=== PATIENT | female | born 1995 | race Caucasian/White ===

== ENCOUNTER 2020-08-23 00:52 | Emergency (ER) | payer OTHER, SELFPAY ==
[2020-08-23 00:55] VITALS: BP 102/57; PULSE 100; RESP 16; TEMP 36.9; O2SAT 98; BMI 20.7
[2020-08-23 01:19] LABS: Glucose Urine UA NEG (NEG); Leukocyte Esterase Urine NEG (NEG); Nitrite Urine NEG (NEG); PH 6.5 (5.0-8.0); Specific Gravity - Urine 1.025 (1.005-1.025); Urine Blood TRACE (NEG); Urine Ketones 5 MG/DL (NEG); Urine Protein NEG (NEG-TRACE)
[2020-08-23 01:38] LABS: UPreg QC Valid YES; Urine Pregnancy NEGATIVE (NEGATIVE)
[2020-08-23 01:39] LABS: Appearance Urine CLEAR; Bacteria Urine TRACE /LPF; Color Urine YELLOW; RBC Urine 0-2 /HPF (0); Renal Epithelial Cells Urine 2+ /LPF; Squamous Epithelial Cell Urine 2+ /LPF; WBC Urine 0 /HPF (0-4)
[2020-08-23 01:40] LABS: Uric Acid Crystals Urine TRACE /LPF
--- NOTE | 2020-08-23 01:46 | ED.ABDPAIN ---
HPI - Abdominal Pain General Chief Complaint: Abdominal Pain Stated Complaint: Nausea Time Seen by Provider: 08/23/20 01:44 Source: patient Mode of arrival: ambulatory Limitations: no limitations History of Present Illness HPI narrative: This is a 24-year-old female who presents with onset of lower abdominal discomfort that radiates around into her back since 4:00 a.m. this morning and then began developing nausea and vomiting as well as chills at approximately noon as well as experiencing a few episodes of diarrhea. her LMP was last month and she states she gets irregular menses. Related Data Previous Rx's Medication Instructions Recorded hydroxyzine HCl 25 mg PO TID PRN 2 Days #6 tab 08/23/20 ondansetron HCl [Zofran] 4 mg PO Q8H PRN 2 Days #6 tab 08/23/20 Allergies Allergy/AdvReac Type Severity Reaction Status Date / Time SEASONAL ALLERGIES Allergy Intermediate SNEEZING Uncoded 06/23/20 16:34 Review of Systems Review of Systems Pertinent positives and negatives as stated in HPI 10 point review of systems is otherwise negative. Physical Exam Vital Signs: Vital Signs: Last Vital Signs Temp 98.3 F 08/23/20 03:47 Pulse 103 H 08/23/20 03:47 Resp 16 08/23/20 04:13 BP 104/54 L 08/23/20 04:13 Pulse Ox 99 08/23/20 04:13 Body Mass Index 20.7 VITAL SIGNS: Reviewed. GENERAL: Well developed, well nourished, in no acute distress. HEAD: Normocephalic/atraumatic, EYES: PERRLA, EOMI intact without pain, no nystagmus/pallor/icterus noted EARS: Ext canals without abnormality, TMs non-bulging and non-erythematous NOSE: Nares patent bilateral OROPHARYNX: no oral lesions noted, posterior pharynx clear and non-erythematous without noted tonsillar enlargement/erythema/exudates NECK: Supple, no adenopathy LUNGS: Normal breath sounds. No adventitious sounds or accessory muscle use. SpO2<98> CARDIOVASCULAR: Regular rate and rhythm without noted murmurs, no JVD or lower extremity edema. ABDOMEN: Soft, Tenderness on palpation without rebound, non-distended with bowel sounds. No rigidity. No guarding. No palpable masses or hernias noted MUSCULOSKELETAL: No tenderness, deformities, or effusions noted on gross inspection. EXTREMITIES: No cyanosis, clubbing or edema. SKIN: Inspection of the skin reveals no rashes, ulcerations, jaundice, pallor, or petechiae. NEUROLOGIC: Alert and oriented x 4. Strength and sensation to light touch were grossly intact x 4. Course Course Course Narrative: This is a 24-year-old female with history and clinical presentation suggestive of possible ectopic, appendicitis, UTI, renal colic, but doubt diverticulitis, or ovarian torsion. Reevaluation(s) Reevaluation #1: Suspect intra-abdominal infection and blood cultures, lactic acid, sepsis fluids, and antibiotics were ordered. Time: 03:35 Reevaluation #2: Review of all investigations negative for any acute findings and the noted mild leukocytosis is likely secondary to patient's nausea and vomiting. Review of CT scan was significant for peripherally enhancing hypodensity in the left adnexa, suggestive of a corpus luteal cyst and with a noted small amount of pelvic free fluid may be physiologic or secondary to cyst rupture. I suspect likely cyst rupture given patient's discomfort and symptoms. On re-evaluation the pain medication that patient received has resulted in almost complete resolution of her discomfort and she is able to tolerate p.o.. Results and findings were discussed with her bedside and she was discharged home in stable condition. Time: 04:54 MDM - Abdominal Pain Lab Data Result diagrams: 08/23/20 01:50 08/23/20 01:50 Labs: Lab Results 08/23/20 08/23/20 08/23/20 Range/Units 01:09 01:50 01:50 WBC 12.2 H (4.8-10.8) X10*3/uL RBC 4.41 (4.20-5.50) X10*6/uL Hgb 13.5 (12.0-16.0) g/dl Hct 40.8 (37-47) % MCV 92.5 (80-98) fL MCH 30.6 (27.0-33.0) pg MCHC 33.1 (31.0-35.0) g/dl RDW 11.9 (11.0-16.0) % Plt Count 258 (160-400) X10*3/uL MPV 11.1 (9.4-12.3) fL Immature Gran % (Auto) 0.2 (0.0-0.4) % Neut % (Auto) 80.7 H (45-73) % Lymph % (Auto) 10.9 L (20-40) % [place] % (Auto) 7.3 (2-11) % Eos % (Auto) 0.7 (0-4) % Baso % (Auto) 0.2 (0-2) % Lymph # (Auto) 1.3 (1.2-4.9) X10*3/uL [place] # (Auto) 0.9 (0.1-1.2) X10*3/uL Eos # (Auto) 0.1 (0.0-0.4) X10*3/uL Baso # (Auto) 0.0 (0.0-0.2) X10*3/uL Abs Immat Gran (auto) 0.02 (0.00-0.03) X10*3/uL Absolute Neuts (auto) 9.9 H (2.0-8.3) X10*3/uL Absolute Nucleated RBC 0.000 (0.0-0.012) X10*3/uL Nucleated RBC % (auto) 0.0 (0.0-0.2) /100WBC Hold Blue Top SEE NOTE Sodium (135-145) mmol/L Potassium (3.3-5.1) mmol/l Chloride (96-108) mmol/L Carbon Dioxide (22-29) mmol/L Anion Gap (12-20) BUN (9-16) mg/dL Creatinine (0.5-1.4) mg/dL Estim Creat Clear Calc Estimated GFR Random Glucose (60-115) mg/dL Lactic Acid (0.5-2.0) mmol/L Calcium (8.4-10.2) mg/dL Total Bilirubin (0.0-1.0) mg/dL AST (5-31) U/L ALT (0-31) U/L Alkaline Phosphatase (39-117) U/L Total Protein (6.5-8.0) g/dL Albumin (3.5-5.0) g/dL Lipase (8-78) U/L Urine Color YELLOW Urine Appearance CLEAR Urine pH 6.5 (5.0-8.0) Ur Specific [place] 1.025 (1.005-1.025) Urine Protein NEG (NEG-TRACE) MG/DL Urine Glucose (UA) NEG (NEG) MG/DL Urine Ketones 5 (NEG) MG/DL Urine Blood TRACE (NEG) Urine Nitrite NEG (NEG) Ur Leukocyte Esterase NEG (NEG) Urine RBC 0-2 (0) /HPF Urine WBC 0 (0-4) /HPF Ur Squamous Epith Cells 2+ /LPF Ur Renal Epithelial Cell 2+ /LPF Uric Acid Crystals TRACE /LPF Urine Bacteria TRACE /LPF Urine Test NEGATIVE (NEGATIVE) 08/23/20 08/23/20 Range/Units 01:50 03:47 WBC (4.8-10.8) X10*3/uL RBC (4.20-5.50) X10*6/uL Hgb (12.0-16.0) g/dl Hct (37-47) % MCV (80-98) fL MCH (27.0-33.0) pg MCHC (31.0-35.0) g/dl RDW (11.0-16.0) % Plt Count (160-400) X10*3/uL MPV (9.4-12.3) fL Immature Gran % (Auto) (0.0-0.4) % Neut % (Auto) (45-73) % Lymph % (Auto) (20-40) % [place] % (Auto) (2-11) % Eos % (Auto) (0-4) % Baso % (Auto) (0-2) % Lymph # (Auto) (1.2-4.9) X10*3/uL [place] # (Auto) (0.1-1.2) X10*3/uL Eos # (Auto) (0.0-0.4) X10*3/uL Baso # (Auto) (0.0-0.2) X10*3/uL Abs Immat Gran (auto) (0.00-0.03) X10*3/uL Absolute Neuts (auto) (2.0-8.3) X10*3/uL Absolute Nucleated RBC (0.0-0.012) X10*3/uL Nucleated RBC % (auto) (0.0-0.2) /100WBC Hold Blue Top Sodium 138 (135-145) mmol/L Potassium 4.2 (3.3-5.1) mmol/l Chloride 106 (96-108) mmol/L Carbon Dioxide 25 (22-29) mmol/L Anion Gap 11 L (12-20) BUN 12 (9-16) mg/dL Creatinine 0.73 (0.5-1.4) mg/dL Estim Creat Clear Calc 90.4 Estimated GFR > 60 Random Glucose 109 (60-115) mg/dL Lactic Acid 1.1 (0.5-2.0) mmol/L Calcium 9.5 (8.4-10.2) mg/dL Total Bilirubin 0.5 (0.0-1.0) mg/dL AST 13 (5-31) U/L ALT 9 (0-31) U/L Alkaline Phosphatase 49 (39-117) U/L Total Protein 7.4 (6.5-8.0) g/dL Albumin 4.9 (3.5-5.0) g/dL Lipase 28 (8-78) U/L Urine Color Urine Appearance Urine pH (5.0-8.0) Ur Specific [place] (1.005-1.025) Urine Protein (NEG-TRACE) MG/DL Urine Glucose (UA) (NEG) MG/DL Urine Ketones (NEG) MG/DL Urine Blood (NEG) Urine Nitrite (NEG) Ur Leukocyte Esterase (NEG) Urine RBC (0) /HPF Urine WBC (0-4) /HPF Ur Squamous Epith Cells /LPF Ur Renal Epithelial Cell /LPF Uric Acid Crystals /LPF Urine Bacteria /LPF Urine Test (NEGATIVE) Discharge Plan Discharge Clinical Impression: Ruptured ovarian cyst, Free fluid in pelvis Patient Disposition: Home, Self-Care Instructions: Ruptured Ovarian Cyst (ED) Additional Instructions: 1. After reviewing the CT scan it appears you may have had a ruptured ovarian cyst on the left. This fluid that is released afterwards can often irritate and caused the pain that you were experiencing. You will need to follow-up with your primary care provider by calling the office this morning and setting up an appointment for further management. 2. Tylenol 1000 mg, orally, every 6 hours as needed for pain control. Do not exceed 4000 mg within 24 hours. 3. Ibuprofen 400 mg, orally with milk or food, every 6 hours as needed for pain control. 4. Stay well hydrated by increasing water intake. The patient and/or family acknowledge understanding of results (as applicable), diagnosis, treatment plan, need for follow up, and symptoms that should prompt a return to the emergency room. Prescriptions: New hydroxyzine HCl 25 mg tablet 25 mg PO TID PRN (Reason: anxiety) 2 Days Qty: 6 RF: 0 ondansetron HCl [Zofran] 4 mg tablet 4 mg PO Q8H PRN (Reason: nausea and vomiting) 2 Days Qty: 6 RF: 0 Referrals: Physician,None [Primary Care Provider] - 2 days ( for further management and re-evaluation after your visit today in the ER) [facility] Past Medical History Source: nursing notes reviewed Medical History Anxiety Asthma Depression Kidney calculi Social History Social History Advance Directives: No
[2020-08-23 02:04] LABS: Basophils Percent Auto 0.2 % (0-2); Eosinophils Absolute Auto 0.1 X10*3/uL (0.0-0.4); Eosinophils Percent Auto 0.7 % (0-4); Hematocrit 40.8 % (37-47); Hemoglobin 13.5 g/dl (12.0-16.0); Imm Gran Abs Auto 0.02 X10*3/uL (0.00-0.03); Imm Gran Pct Auto 0.2 % (0.0-0.4); Lymphocytes Absolute Auto 1.3 X10*3/uL (1.2-4.9); Lymphocytes Percent Auto 10.9 % (20-40); Mean Corpuscular HGB Conc 33.1 g/dl (31.0-35.0); Mean Corpuscular Hemoglobin 30.6 pg (27.0-33.0); Mean Corpuscular Volume 92.5 fL (80-98); Mean Platelet Volume 11.1 fL (9.4-12.3); Monocytes Absolute Auto 0.9 X10*3/uL (0.1-1.2); Monocytes Percent Auto 7.3 % (2-11); Neutrophils Absolute Auto 9.9 X10*3/uL (2.0-8.3); Neutrophils Percent Auto 80.7 % (45-73); Platelet Count 258 X10*3/uL (160-400); Red Blood Count 4.41 X10*6/uL (4.20-5.50); Red Cell Distribution Width 11.9 % (11.0-16.0); White Blood Count 12.2 X10*3/uL (4.8-10.8)
[2020-08-23 02:05] LABS: MANUAL DIFF FLAG NO
[2020-08-23] MEDS: Acetaminophen 325 MG TABLET 975 MG PO (02:05)
[2020-08-23] MEDS: Ketorolac Tromethamine 15 MG/ML VIAL IVPUSH (02:06)
[2020-08-23] MEDS: 0.9 % Sodium Chloride 1,000 ML 999 ML IVCONT (02:06)
[2020-08-23] MEDS: ondansetron HCL 4 MG/2 ML VIAL IVPUSH (02:06)
--- NOTE | 2020-08-23 02:33 | PC.NURSE ---
PT EXTREMELY ANXIOUS WHILE PUTTING IN HL INTO RAC, PT STARTED SHAKING, CRYING, AND BREATHING FAST. EDUCATED PT ON SLOWING BREATHING DOWN. PT C/O NAUSEA AND ACTIVELY VOMITING IN ROOM. PT MEDICATED PER EMAR FOR PAIN AND NAUSEA. PT GIVEN TYLENOL AND PT STARTED VOMITING TYLENOL UP. AWARE.
[2020-08-23 02:37] LABS: Alanine Aminotransferase 9 U/L (0-31); Albumin Level 4.9 g/dL (3.5-5.0); Alkaline Phosphatase 49 U/L (39-117); Anion Gap 11 (12-20); Aspartate Amino Transferase 13 U/L (5-31); Bilirubin Total 0.5 mg/dL (0.0-1.0); Blood Urea Nitrogen 12 mg/dL (9-16); Calcium 9.5 mg/dL (8.4-10.2); Carbon Dioxide 25 mmol/L (22-29); Chloride 106 mmol/L (96-108); Creatinine Clr Calc Pharmacy 90.4; Estimated Glomerular Filt Rate > 60; Glucose Random 109 mg/dL (60-115); Lipase 28 U/L (8-78); Potassium 4.2 mmol/l (3.3-5.1); Sodium 138 mmol/L (135-145); Total Protein 7.4 g/dL (6.5-8.0)
--- NOTE | 2020-08-23 02:40 | CT_ITS ---
EXAMINATION: CT ABDOMEN AND PELVIS WITH CONTRAST CLINICAL INFORMATION: Lower abdominal pain COMPARISON: 09/08/2013 TECHNIQUE: Multidetector volumetric images were obtained from the superior aspect of the liver through the pubic symphysis following administration 85 mL of Omnipaque 350 intravenous contrast. Sagittal and coronal reformatted images were obtained on the technologist's workstation. Oral contrast: No This CT examination was performed using dose optimization techniques as appropriate, variously including the following: *Automated exposure control *Adjustment of mA and/or kV according to patient size (this includes techniques or standardized protocols for targeted exams where dose is matched to indication/reason for exam; i.e. extremities or head) *Use of iterative reconstruction technique DLP: 330 mGy-cm FINDINGS: LUNG BASES: The visualized lung bases are unremarkable. LIVER, GALLBLADDER, AND BILIARY TREE: The liver is normal in size, shape, and attenuation. Few scattered subcentimeter hypodense hepatic lesions are too small to characterize, suggestive of cysts. No biliary ductal dilatation is present. The gallbladder is unremarkable with no evidence of radiopaque gallstones, gallbladder wall thickening, or obvious pericholecystic inflammatory changes. PANCREAS: Unremarkable. SPLEEN: Unremarkable. ADRENAL GLANDS: Unremarkable. KIDNEYS AND URETERS: The kidneys are normal in size, shape, and attenuation. No hydronephrosis, hydroureter, or obstructing calculi seen. No perinephric stranding. BLADDER: Unremarkable. GASTROINTESTINAL TRACT: The small and large bowel are unremarkable. The appendix is unremarkable. No free fluid or free air is seen. ABDOMINAL WALL: No significant hernia is appreciated. LYMPH NODES: Normal. VASCULAR: Unremarkable. PELVIC VISCERA: There is a peripherally enhancing hypodense structure in the left adnexa measuring approximately 2 cm in diameter, suggestive of a corpus luteal cyst. Small amount of pelvic free fluid is present. OSSEOUS STRUCTURES: Unremarkable. CT/CT abdomen pelvis w con IMPRESSION: 1. Peripherally enhancing hypodensity in the left adnexa, suggestive of a corpus luteal cyst. Small amount of pelvic free fluid may be physiologic or secondary to cyst rupture. 2. No hydronephrosis or obstructing calculus identified. 3. Normal-appearing appendix.
[2020-08-23] MEDS: fentaNYL citrate/PF 100 MCG/2 ML VIAL 25 MCG IVPUSH (02:48)
[2020-08-23] MEDS: iohexoL 350 MG/ML 100 ML INFUS..BTL 85 ML IV (03:24)
[2020-08-23] MEDS: Metoclopramide HCl 10 MG/2 ML VIAL IVPUSH (03:41)
[2020-08-23] MEDS: diphenhydrAMINE HCL 50 MG/ML VIAL 25 MG IVPUSH (03:41)
[2020-08-23] MEDS: 0.9 % Sodium Chloride 1,500 ML 999 ML IV (03:41)
[2020-08-23 03:47] VITALS: BP 102/48; PULSE 103; TEMP 36.8; O2SAT 99
[2020-08-23] MEDS: cefTRIAXone sodium 1 GM in 0.9 % Sodium Chloride 50 ML IV (03:57)
--- NOTE | 2020-08-23 04:08 | PC.NURSE ---
PT CONTINUES TO STATE I FEEL VERY ANXIOUS AND I DON'T FEEL RIGHT. PT DENIES BEING ABLE TO KEEP ANYTHING DOWN FROM A PO INTAKE. MD AWARE. CEFTRIXONE UP AND RUNNING PER EMAR, SITE INTACT.
[2020-08-23 04:12] LABS: Lactic Acid 1.1 mmol/L (0.5-2.0)
[2020-08-23 04:13] VITALS: BP 104/54; RESP 16; O2SAT 99
--- NOTE | 2020-08-23 05:05 | PC.NURSE ---
PT STATES IM FEELING BETTER AND IM NAUSEATED BECAUSE OF ANXIETY AND I DON'T THINK YOU CAN HELP . MD AWARE.
--- NOTE | 2020-08-23 05:06 | PC.NURSE ---
PT EATING CRACKERS AND DRINKING WATER.
== END 2020-08-23 05:14 | disposition home or self-care (01) ==
PROVIDERS: Emergency Provider Student in an Organized Health Care Education/Training Program
DX: N83.202 Unspecified ovarian cyst, left side (principal); R10.2 Pelvic and perineal pain; R11.2 Nausea with vomiting, unspecified; Z79.899 Other long term (current) drug therapy
CPT/HCPCS: 36415; 74177; 80053; 81001; 81025; 83605; 83690; 85025; 87040; 96361; 96365; 96375; 99284; J0696; J1200; J1885; J2405; J2765; J3010; Q9967

== ENCOUNTER 2020-09-22 17:31 | Emergency (ER) | payer OTHER, SELFPAY ==
[2020-09-22 17:43] VITALS: BP 111/67; PULSE 78; RESP 16; TEMP 36.8; O2SAT 100; BMI 20.7
--- NOTE | 2020-09-22 17:59 | US_ITS ---
EXAMINATION: ABDOMINAL ULTRASOUND LIMITED CLINICAL INFORMATION: Right-sided pain. COMPARISON: August 23, 2020. TECHNIQUE: Real-time imaging of the abdominal viscera. FINDINGS: GALLBLADDER: Normal. The gallbladder is physiologically distended without evidence of stones, sludge, polyps, wall thickening or pericholecystic fluid. COMMON BILE DUCT: Normal in caliber measuring 0.3 cm in diameter. RIGHT KIDNEY: There is no hydronephrosis. There is a 2 mm nonobstructive calculus within the interpole region. There is a 1 mm nonobstructive catheter was within the upper pole. The kidney measures 11.2 cm in maximum dimension. LEFT KIDNEY: There is no hydronephrosis. There is a 2 mm nonobstructive calculus within the interpole region. The kidney measures 10.7 cm in maximum dimension. FREE FLUID: None. US/US abdomen limited IMPRESSION: Punctate nonobstructive renal calculi bilaterally. No hydronephrosis. Normal gallbladder.
[2020-09-22 18:00] VITALS: RESP 20
--- NOTE | 2020-09-22 18:02 | ED.ABDPAIN ---
HPI - Abdominal Pain General Chief Complaint: Abdominal Pain Stated Complaint: Abdominal Pain Time Seen by Provider: 09/22/20 17:59 Source: patient Mode of arrival: ambulatory Limitations: no limitations History of Present Illness HPI narrative: 24-year-old female with past medical history is significant for anxiety, asthma, depression, renal calculi who reports to me that she has a history of ongoing GI issues throughout majority of her adult life presents today with complaint of right upper quadrant/right flank pain ongoing for the past several days. States exactly a month ago she was seen here at that time she had lower abdominal pain which improved she was told that she had a ovarian cyst to follow up however she called her primary care doctor as well as her securities counselor she did not get a response back pain in the right flank area progressively worse over the past 1 day which is making her nauseated prompting her to come to the emergency room here today. She denies any vaginal bleeding or discharge. There is no suprapubic or pelvic pain. MD elicited complaint: abdominal pain and flank pain Pertinent past history: kidney stones Related Data Previous Rx's Medication Instructions Recorded hydroxyzine HCl 25 mg PO TID PRN 2 Days #6 tab 08/23/20 ondansetron HCl [Zofran] 4 mg PO Q8H PRN 2 Days #6 tab 08/23/20 lorazepam [Ativan] 0.5 mg PO BID PRN #10 tab 09/22/20 Allergies Allergy/AdvReac Type Severity Reaction Status Date / Time SEASONAL ALLERGIES Allergy Intermediate SNEEZING Uncoded 06/23/20 16:34 Review of Systems Review of Systems Constitutional: No Weight loss, No Fever, No Chills, No Night Sweats, No Fatigue, No Malaise ENT/Mouth: No Hearing loss, No Ear Pain, No Nasal Congestion, No Sinus Pain, No Hoarseness, No sore throat, No Rhinorrhea Eyes: No Eye Pain, No Swelling, No Redness, No Foreign Body, No Discharge, No Vision Changes Cardiovascular: No Chest Pain, No SOB, No Dyspnea on Exertion, No Orthopnea, No Edema, No Palpitations Respiratory: No Cough, No Sputum, No Wheezing, No Dyspnea Gastrointestinal: No Nausea, No Vomiting, No Diarrhea, No Constipation, No abdominal Pain, No Hematochezia, No Melena Genitourinary: no irregular bleeding, No Dysuria, No Urinary Frequency, No Hematuria, No Urinary Incontinence, No Urgency, No Flank Pain, No Urinary Flow Changes, No Hesitancy Musculoskeletal: No joint pain, No Myalgias, No Joint Swelling Skin: No Skin Lesions, No rash Neuro: No Weakness, No Numbness, No Paresthesias, No Loss of Consciousness, No Dizziness, No Headache Psych: No Social Issues Heme/Lymph: No Bruising, No Bleeding,No Lymphadenopathy Endocrine: No Polyuria, No Polydipsia, No Temperature Intolerance Yes all other systems are reviewed and are negative Physical Exam Vital Signs: Vital Signs: Last Vital Signs Temp 98.3 F 09/22/20 17:43 Pulse 78 09/22/20 17:43 Resp 20 09/22/20 18:00 BP 111/67 09/22/20 17:43 Pulse Ox 100 09/22/20 17:43 Body Mass Index 20.7 Reviewed Const: General: cooperative and healthy appearing; No acute distress or intoxicated appearing Nutritional Appearance: average body habitus Orientation/consciousness: patient oriented x3 HENMT: Head: Yes normal to inspection Ears: hearing grossly normal bilaterally Eyes: General: appearance normal, both eyes and all related structures Visual Self: normal visual self by confrontation Neck: Neck: Yes normal visual inspection and No tender Thyroid: Thyroid normal Chest: Chest palpation & inspection: normal inspection of the chest Resp: Effort & Inspection: normal respiratory effort Cardio: Jugular venous distension: no JVD Rhythm: regular rhythm Heart sounds: S1 normal heart sound present and S2 normal heart sound present GI: Inspection: Yes normal to inspection Palpation (GI): Soft to palpation, nontender and no guarding Percussion: Yes normal to percussion Auscultation: normal bowel sounds : General: Yes no CVA tenderness Back/Spine/Pelvis: Back: no CVA tenderness Skin: General skin exam: no rashes or lesions noted Neuro: General: patient oriented x3 Extrem: General: Yes normal to inspection Course Course Course Narrative: Labs overall reassuring. Ultrasound of gallbladder and kidneys within normal limits. After reviewing the labs with her she states to me that she feels like this is more of her ?anxiety? States she will have increased feeling of restlessness at times feels very anxious and sometimes racing thoughts unable to sleep she seen her primary care doctor for this and states that they have been focusing more her on abdomen and not her mental health. She would like something for anxiety she was given hydroxyzine on the last visit here and it actually made her nauseated so she has not been taking. 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 She just can not get her thoughts under control. Denies any SI or HI. At this time I did discuss with her the importance of following with her GP and get referral for therapy she tells me she has seen therapists in the past has trialed several medications for anxiety and depression which have not really worked. Given that she has an appointment coming up with her new primary care doctor in [facility] care she will be given short course resp air with instructions to follow-up for long-term management. She is agreeable plan. Tolerating p.o. intake well. A repeat abdominal exam remains benign. MDM - Abdominal Pain MDM Narrative Medical decision making narrative: Exam overall stable. Will nontoxic appearing. Will repeat labs imaging reviewed from last month of abdominal CT scan. Differential Diagnosis Differential diagnosis: Likely abdominal pain (IBS), calculus of kidney and renal colic; Unlikely aortic dissection, acute appendicitis, bowel perforation, constipation, ovarian cyst, pancreatitis and small bowel obstruction Medical Records Attestation: I reviewed the patient's medical records. (August 23, [address] scanner report) Lab Data Attestation: I reviewed the patient's lab results. Result diagrams: 09/22/20 18:20 09/22/20 18:20 Labs: Lab Results 09/22/20 09/22/20 09/22/20 Range/Units 18:19 18:20 18:20 WBC 8.9 (4.8-10.8) X10*3/uL RBC 4.30 (4.20-5.50) X10*6/uL Hgb 13.3 (12.0-16.0) g/dl Hct 39.6 (37-47) % MCV 92.1 (80-98) fL MCH 30.9 (27.0-33.0) pg MCHC 33.6 (31.0-35.0) g/dl RDW 11.8 (11.0-16.0) % Plt Count 229 (160-400) X10*3/uL MPV 10.9 (9.4-12.3) fL Immature Gran % (Auto) 0.2 (0.0-0.4) % Neut % (Auto) 71.1 (45-73) % Lymph % (Auto) 19.2 L (20-40) % [place] % (Auto) 9.2 (2-11) % Eos % (Auto) 0.1 (0-4) % Baso % (Auto) 0.2 (0-2) % Lymph # (Auto) 1.7 (1.2-4.9) X10*3/uL [place] # (Auto) 0.8 (0.1-1.2) X10*3/uL Eos # (Auto) 0.0 (0.0-0.4) X10*3/uL Baso # (Auto) 0.0 (0.0-0.2) X10*3/uL Abs Immat Gran (auto) 0.02 (0.00-0.03) X10*3/uL Absolute Neuts (auto) 6.3 (2.0-8.3) X10*3/uL Absolute Nucleated RBC 0.000 (0.0-0.012) X10*3/uL Nucleated RBC % (auto) 0.0 (0.0-0.2) /100WBC Sodium 137 (135-145) mmol/L Potassium 3.4 (3.3-5.1) mmol/l Chloride 104 (96-108) mmol/L Carbon Dioxide 22 (22-29) mmol/L Anion Gap 14 (12-20) BUN 16 (9-16) mg/dL Creatinine 0.71 (0.5-1.4) mg/dL Estim Creat Clear Calc 93.0 Estimated GFR > 60 Random Glucose 86 (60-115) mg/dL Calcium 9.8 (8.4-10.2) mg/dL Total Bilirubin 0.6 (0.0-1.0) mg/dL AST 18 (5-31) U/L ALT 16 (0-31) U/L Alkaline Phosphatase 53 (39-117) U/L Total Protein 8.0 (6.5-8.0) g/dL Albumin 5.3 H (3.5-5.0) g/dL Urine Color YELLOW Urine Appearance CLEAR Urine pH 6.0 (5.0-8.0) Ur Specific [place] 1.025 (1.005-1.025) Urine Protein NEG (NEG-TRACE) MG/DL Urine Glucose (UA) NEG (NEG) MG/DL Urine Ketones >=80 (NEG) MG/DL Urine Blood 2+ H (NEG) Urine Nitrite NEG (NEG) Ur Leukocyte Esterase NEG (NEG) Urine RBC 1-4 (0) /HPF Urine WBC 0 (0-4) /HPF Ur Squamous Epith Cells TRACE /LPF Urine Bacteria TRACE /LPF Urine Test NEGATIVE (NEGATIVE) Imaging Data US - abdomen: Radiologist's impression: [address] [address] Ultrasound Report Signed Patient: Remedios LinderMR#: [id number] : 1995Acct:[id number] Age/Sex: 24 / FADM Date: 09/22/20 Loc: .ED Attending Dr: Ordering Physician: Rony Caceres NP Date of Service: 09/22/20 Procedure(s): US abdomen limited Accession Number(s): [id number] cc: Rony Caceres AUTOMOBILE MECHANIC ASSISTANT~ EXAMINATION: ABDOMINAL ULTRASOUND LIMITED CLINICAL INFORMATION: Right-sided pain. COMPARISON: August 23, 2020. TECHNIQUE: Real-time imaging of the abdominal viscera. FINDINGS: GALLBLADDER: Normal. The gallbladder is physiologically distended without evidence of stones, sludge, polyps, wall thickening or pericholecystic fluid. COMMON BILE DUCT: Normal in caliber measuring 0.3 cm in diameter. RIGHT KIDNEY: There is no hydronephrosis. There is a 2 mm nonobstructive calculus within the interpole region. There is a 1 mm nonobstructive catheter was within the upper pole. The kidney measures 11.2 cm in maximum dimension. LEFT KIDNEY: There is no hydronephrosis. There is a 2 mm nonobstructive calculus within the interpole region. The kidney measures 10.7 cm in maximum dimension. FREE FLUID: None. US/US abdomen limited IMPRESSION: Punctate nonobstructive renal calculi bilaterally. No hydronephrosis. Normal gallbladder. Dictated By:YONI DAVILA MD Signed By:<Electronically signed by YONI DAVILA MD in OV>09/22/20 190 DD/ 389 TD/TT: Escrow Manager: Discharge Plan Discharge Clinical Impression: Abdominal pain, Anxiety Patient Disposition: Home, Self-Care Instructions: Abdominal Pain (ED), Anxiety (ED) Additional Instructions: Drink plenty of fluids Stress relieving techniques as reviewed with You Balanced diet Plenty of sleep Avoid any carbonated drinks, energy drinks, caffeine Taking medication prescribed Return if any concerns or worsening symptoms otherwise follow up with her primary care doctor at [facility] as scheduled in 2 weeks Thank you Prescriptions: New lorazepam [Ativan] 0.5 mg tablet 0.5 mg PO BID PRN (Reason: anxiety) Qty: 10 RF: 0 No Action hydroxyzine HCl 25 mg tablet 25 mg PO TID PRN (Reason: anxiety) 2 Days Qty: 6 RF: 0 ondansetron HCl [Zofran] 4 mg tablet 4 mg PO Q8H PRN (Reason: nausea and vomiting) 2 Days Qty: 6 RF: 0 Referrals: Naz He, AUTOMOBILE MECHANIC ASSISTANT [Primary Care Provider] - 2 weeks Stand Alone Forms: Work/School Release FOR[facility]LY [facility], [facility] Past Medical History Medical History Anxiety Asthma Depression Kidney calculi Social History Social History Advance Directives: No Advance Directives Information Provided: No
[2020-09-22] MEDS: 0.9 % Sodium Chloride 1,000 ML 999 ML IV (18:21)
[2020-09-22 18:28] LABS: Basophils Percent Auto 0.2 % (0-2); Eosinophils Percent Auto 0.1 % (0-4); Hematocrit 39.6 % (37-47); Hemoglobin 13.3 g/dl (12.0-16.0); Imm Gran Abs Auto 0.02 X10*3/uL (0.00-0.03); Imm Gran Pct Auto 0.2 % (0.0-0.4); Lymphocytes Absolute Auto 1.7 X10*3/uL (1.2-4.9); Lymphocytes Percent Auto 19.2 % (20-40); MANUAL DIFF FLAG NO; Mean Corpuscular HGB Conc 33.6 g/dl (31.0-35.0); Mean Corpuscular Hemoglobin 30.9 pg (27.0-33.0); Mean Corpuscular Volume 92.1 fL (80-98); Mean Platelet Volume 10.9 fL (9.4-12.3); Monocytes Absolute Auto 0.8 X10*3/uL (0.1-1.2); Monocytes Percent Auto 9.2 % (2-11); Neutrophils Absolute Auto 6.3 X10*3/uL (2.0-8.3); Neutrophils Percent Auto 71.1 % (45-73); Platelet Count 229 X10*3/uL (160-400); Red Cell Distribution Width 11.8 % (11.0-16.0); White Blood Count 8.9 X10*3/uL (4.8-10.8)
[2020-09-22 18:30] LABS: Glucose Urine UA NEG (NEG); Leukocyte Esterase Urine NEG (NEG); Nitrite Urine NEG (NEG); Specific Gravity - Urine 1.025 (1.005-1.025); Urine Blood 2+ (NEG); Urine Ketones >=80 MG/DL (NEG); Urine Protein NEG (NEG-TRACE)
[2020-09-22 18:31] LABS: Appearance Urine CLEAR; Color Urine YELLOW
[2020-09-22 18:35] LABS: UPreg QC Valid YES; Urine Pregnancy NEGATIVE (NEGATIVE)
[2020-09-22 18:43] LABS: Bacteria Urine TRACE /LPF; Squamous Epithelial Cell Urine TRACE /LPF; WBC Urine 0 /HPF (0-4)
[2020-09-22 18:52] LABS: Alanine Aminotransferase 16 U/L (0-31); Albumin Level 5.3 g/dL (3.5-5.0); Alkaline Phosphatase 53 U/L (39-117); Anion Gap 14 (12-20); Aspartate Amino Transferase 18 U/L (5-31); Bilirubin Total 0.6 mg/dL (0.0-1.0); Blood Urea Nitrogen 16 mg/dL (9-16); Calcium 9.8 mg/dL (8.4-10.2); Carbon Dioxide 22 mmol/L (22-29); Chloride 104 mmol/L (96-108); Estimated Glomerular Filt Rate > 60; Glucose Random 86 mg/dL (60-115); Potassium 3.4 mmol/l (3.3-5.1); Sodium 137 mmol/L (135-145)
[2020-09-22] MEDS: Ketorolac Tromethamine 30 MG/ML VIAL IVPUSH (18:57)
[2020-09-22] MEDS: ondansetron HCL 4 MG/2 ML VIAL IVPUSH (19:07)
[2020-09-22 20:18] VITALS: BP 99/44; PULSE 66; RESP 18; TEMP 36.8; O2SAT 100
[2020-09-22 20:31] VITALS: BP 105/55; PULSE 75; RESP 20; O2SAT 100
== END 2020-09-22 20:49 | disposition home or self-care (01) ==
PROVIDERS: Nurse Practitioner Primary Care; Emergency Provider Emergency Medicine; PCP Nurse Practitioner Family
DX: R10.9 Unspecified abdominal pain (principal); F41.1 Generalized anxiety disorder; F43.0 Acute stress reaction; Z79.899 Other long term (current) drug therapy
CPT/HCPCS: 36415; 76705; 80053; 81001; 81025; 85025; 96361; 96374; 96375; 99284; J1885; J2405

== ENCOUNTER 2020-10-02 01:47 | Emergency (ER) | payer OTHER, SELFPAY ==
[2020-10-02 02:12] VITALS: BP 123/76; PULSE 98; RESP 28; TEMP 36.6; O2SAT 98; BMI 20.4
--- NOTE | 2020-10-02 02:20 | PC.NURSE ---
pt states she took ativan .5 po at 2200 last night with no effect, pt thinks she might of vomited it up.
--- NOTE | 2020-10-02 03:40 | ED.ANXIETY ---
HPI - Anxiety General Chief Complaint: Anxiety Stated Complaint: Panick Attack Time Seen by Provider: 10/02/20 03:36 Source: patient Mode of arrival: ambulatory Limitations: no limitations History of Present Illness HPI narrative: This is a 24-year-old female with known history of anxiety and presents with acute onset this afternoon that she states started to get out of control and was additionally contributed to by smoking some marijuana. Patient states that she tried to go to sleep but was waking up very anxious and began having tingling in the tips of her fingers on bilateral hands but otherwise denies any illness. She states that by the time she decided to take her antianxiety medication she was already feeling nauseous and vomiting so she was not able to keep the medication down. Related Data Previous Rx's Medication Instructions Recorded hydroxyzine HCl 25 mg PO TID PRN 2 Days #6 tab 08/23/20 ondansetron HCl [Zofran] 4 mg PO Q8H PRN 2 Days #6 tab 08/23/20 lorazepam [Ativan] 0.5 mg PO BID PRN #10 tab 09/22/20 Allergies Allergy/AdvReac Type Severity Reaction Status Date / Time SEASONAL ALLERGIES Allergy Intermediate SNEEZING Uncoded 06/23/20 16:34 Review of Systems Review of Systems: Pertinent positives and negatives as stated in HPI 10 point review of systems otherwise negative. PMFSH Past Medical History Source: nursing notes reviewed Medical History Anxiety Asthma Depression Kidney calculi Social History Social History Advance Directives: No Advance Directives Information Provided: No Physical Exam Vital Signs: Vital Signs: Last Vital Signs Temp 97.8 F 10/02/20 02:12 Pulse 98 10/02/20 02:12 Resp 28 H 10/02/20 02:12 BP 123/76 10/02/20 02:12 Pulse Ox 98 10/02/20 02:12 Body Mass Index 20.4 VITAL SIGNS: Reviewed. GENERAL: Well developed, well nourished, anxious distress. HEAD: Normocephalic/atraumatic, EYES: PERRLA, EOMI intact without pain, no nystagmus/pallor/icterus noted OROPHARYNX: no oral lesions noted, posterior pharynx clear and non-erythematous without noted tonsillar enlargement/erythema/exudates NECK: Supple, no adenopathy LUNGS: Normal breath sounds. No adventitious sounds or accessory muscle use. SpO2<98> CARDIOVASCULAR: Regular rate and rhythm without noted murmurs, no JVD or lower extremity edema. ABDOMEN: Soft, non-tender, non-distended with bowel sounds. No rigidity. No guarding. No palpable masses or hernias noted PSYCH: Anxious, normal affect Course Course Course Narrative: This is a 24-year-old female with history and clinical presentation consistent with acute anxiety attack and nausea and vomiting likely secondary to marijuana intake that prevented further tolerance of home medication for anxiety. Patient will be provided with Zofran and then p.o. Ativan and will likely be discharged in stable condition. During the course of the discussion patient exhibited improvement in anxiety. Initially patient had good improvement with the Zofran Ativan but then began having episodes of nausea and vomiting once again. This then was treated with IM Benadryl and Reglan with good results and patient was able to tolerate p.o. intake. She was discharged home in stable condition. Discharge Plan Discharge Clinical Impression: Acute anxiety Patient Disposition: Home, Self-Care Instructions: Anxiety (ED) Additional Instructions: Please try to avoid marijuana and take during periods of time that you are feeling more anxious. Take anxiety medication as prescribed. Prescriptions: No Action hydroxyzine HCl 25 mg tablet 25 mg PO TID PRN (Reason: anxiety) 2 Days Qty: 6 RF: 0 ondansetron HCl [Zofran] 4 mg tablet 4 mg PO Q8H PRN (Reason: nausea and vomiting) 2 Days Qty: 6 RF: 0 lorazepam [Ativan] 0.5 mg tablet 0.5 mg PO BID PRN (Reason: anxiety) Qty: 10 RF: 0 Referrals: Physician,Unknown [Primary Care Provider] - 2 days
[2020-10-02] MEDS: LORazepam 0.5 MG TABLET PO (03:44)
[2020-10-02] MEDS: Metoclopramide HCl 10 MG/2 ML VIAL IM (05:16)
[2020-10-02] MEDS: diphenhydrAMINE HCL 50 MG/ML VIAL 25 MG IM (05:16)
== END 2020-10-02 05:49 | disposition home or self-care (01) ==
PROVIDERS: Emergency Provider Student in an Organized Health Care Education/Training Program
DX: F12.180 Cannabis abuse with cannabis-induced anxiety disorder (principal); Z79.899 Other long term (current) drug therapy
CPT/HCPCS: 96372; 99283; 99284; J1200; J2765

== ENCOUNTER 2023-04-15 07:03 | Emergency (ER) | payer OTHER, SELFPAY ==
[2023-04-15 07:09] VITALS: BP 124/50; PULSE 81; RESP 14; TEMP 36.4; O2SAT 100; BMI 17.4
[2023-04-15 08:12] VITALS: BP 95/58; PULSE 59; RESP 18; TEMP 36.7; O2SAT 99
[2023-04-15 08:16] LABS: Alanine Aminotransferase 10 U/L (0-31); Albumin Level 4.3 g/dL (3.5-5.0); Alkaline Phosphatase 42 U/L (39-117); Anion Gap 9 (12-20); Aspartate Amino Transferase 15 U/L (5-31); Bilirubin Total 0.5 mg/dL (0.0-1.0); Blood Urea Nitrogen 15 mg/dL (9-16); Calcium 9.2 mg/dL (8.4-10.2); Carbon Dioxide 27 mmol/L (22-29); Chloride 110 mmol/L (96-108); Creatinine Clr Calc Pharmacy 72.9; Estimated Glomerular Filt Rate > 60; Glucose Random 90 mg/dL (60-115); Potassium 4.2 mmol/L (3.3-5.1); Sodium 142 mmol/L (135-145); Total Protein 6.4 g/dL (6.5-8.0)
--- NOTE | 2023-04-15 08:32 | PC.NURSE ---
pt a&ox3. respirations equal and unlabored. skin warm pink and dry. abdomen soft, but tender in lower right quadrant, bowel sounds hypoactive in all 4 quadrants. pt reports pain in lower right groin and lower right back.
--- NOTE | 2023-04-15 10:51 | PC.NURSE ---
pt is currently awake and reporting that her pain is coming back, pain at 8, md aware
--- NOTE | 2023-04-15 10:53 | ED.ABDPAIN ---
HPI - Abdominal Pain General Chief Complaint: Abdominal Pain Stated Complaint: Kidney stone Time Seen by Provider: 04/15/23 07:31 Source: patient Mode of arrival: ambulatory Limitations: no limitations History of Present Illness HPI narrative: 27-year-old female with history kidney stones presents with right-sided abdominal and flank pain. Symptoms are about a 7/10. They are sharp. They are constant. There is no clear relieving or exacerbating features. Pain has settled more into the right flank which is similar to her previous kidney stone. Patient denies any urinary frequency, urgency, dysuria, hematuria patient denies any fevers or chills. She denies any diarrhea constipation. She does have nausea vomiting. Related Data Previous Rx's Medication Instructions Recorded hydroxyzine HCl 25 mg tablet 25 mg PO TID PRN anxiety 2 days #6 08/23/20 tabs ondansetron HCl 4 mg tablet 4 mg PO Q8H PRN nausea and 08/23/20 (Zofran) vomiting 2 days #6 tabs lorazepam 0.5 mg tablet (Ativan) 0.5 mg PO BID PRN anxiety #10 tabs 09/22/20 ibuprofen 800 mg tablet 800 mg PO Q8H PRN pain #14 tabs 04/15/23 ondansetron 4 mg disintegrating 4 mg PO Q8H PRN nausea and 04/15/23 tablet vomiting #10 tabs oxycodone 5 mg tablet 5 mg PO Q8H PRN pain #7 tabs 04/15/23 Allergies Allergy/AdvReac Type Severity Reaction Status Date / Time SEASONAL ALLERGIES Allergy Intermediate SNEEZING Uncoded 06/23/20 16:34 Review of Systems Review of Systems CONSTITUTIONAL: Denies weight loss, fever and chills. HEENT: Denies changes in vision and hearing. RESPIRATORY: Denies SOB and cough. CV: Denies palpitations no CP. GI: + abdominal pain, nausea, vomiting - diarrhea. : Denies dysuria and urinary frequency. MSK: Denies myalgia and joint pain. SKIN: Denies rash and pruritus. NEUROLOGICAL: Denies headache and syncope. PSYCHIATRIC: Denies recent changes in mood. Denies anxiety and depression. All other ROS are negative unless in HPI PMFSH Past Medical History Medical History Anxiety Asthma Depression Kidney calculi Social History Social History Alcohol intake: current Alcohol intake frequency: a few times a week Smoked in Last 30 Days: No Use of substances other than those prescribed or required for medical reasons: Yes Substance Use Type: Marijuana Last Used Substance: Just Prior to Admission Advance Directives: No Advance Directives Information Provided: No Physical Exam ED Vital Signs: Vital Signs - 24 hr 04/15/23 07:09 04/15/23 08:12 04/15/23 11:10 Temperature 97.5 F 98.0 F 97.7 F Pulse Rate 81 59 55 Respiratory Rate 14 18 16 Blood Pressure 124/50 L 95/58 L 96/46 L Pulse Oximetry 100 99 98 Oxygen Delivery Method Room Air Room Air Room Air BMI result Body Mass Index 17.4 GEN: Well developed, no acute distress, alert, oriented HEENT: Normocephalic, atraumatic, normal external ears, nose appears normal, no oropharyngeal edema or exudates Eyes: Normal to appearance Neck: Supple, no lymphadenopathy Respiratory: Talks in complete sentences, no respiratory distress, clear to auscultation bilaterally Cardiovascular: Regular rate and rhythm, no murmurs rubs or gallops Abdomen: Soft, right lower quadrant tenderness, nondistended, no guarding, no rebound Back: Right CVA tenderness Extremities: No clubbing cyanosis or edema Neurologic: No focal neurologic deficits, cranial nerves 2-12 intact, strength is 5/5 bilaterally Skin: No rash Course Course Course Narrative: 27-year-old female presents with right flank pain. She does in fact have a proximal ureteral stone that is approximately 4 mm in diameter. Patient be discharged. She is comfortable at this time. There is no evidence of UTI. I will refer the patient to Urology for routine follow-up. She is aware of reasons to return to the emergency department including but not limited to intractable pain, intractable nausea vomiting, any concerning symptoms. I have also informed her of the hepatomegaly which was seen on CT scan. She can follow up with a dedicated ultrasound of both the kidneys and the liver upon resolution of her symptoms. She has a [employer] procurement services manager that she can follow up with as well as urologist that I will refer her to. Medical Decision Making Medical Decision Making MDM Narrative: 27-year-old female with history kidney stones presents with right-sided flank pain and right lower quadrant abdominal tenderness. Differential diagnosis includes kidney stone, appendicitis, epiploic appendagitis, mesenteric adenitis, colitis, diverticulitis, IBD, IBS, UTI, pyelonephritis. Plan: Check UA, CBC, basic metabolic panel, place patient NPO. Get a CT scan to rule out appendicitis and renal colic as well as the other differential diagnosis, provide patient with IV fluids, antiemetics and analgesia. For any significant acute abnormality, patient may need to be admitted. If it is appendicitis, patient may require hospitalization for an appendicectomy Differential Diagnosis Differential Diagnoses: The differential diagnosis associated with the presentation includes Ureterolithiasis Lab Data MDM Lab Attestation statement: I reviewed the patient's lab results. 04/15/23 07:54 04/15/23 07:54 Labs: Lab Results 04/15/23 04/15/23 04/15/23 Range/Units 07:54 07:54 07:54 WBC 9.0 (4.8-10.8) X10*3/uL RBC 3.55 L (4.20-5.50) X10*6/uL Hgb 11.1 L (12.0-16.0) g/dl Hct 34.2 L (37.0-47.0) % MCV 96.3 (80.0-98.0) fL MCH 31.3 (27.0-33.0) pg MCHC 32.5 (31.0-35.0) g/dl RDW 12.1 (11.0-16.0) % Plt Count 192 (160-400) X10*3/uL MPV 10.6 (9.4-12.3) fL Immature Gran % (Auto) 0.3 (0.0-0.4) % Neut % (Auto) 68.7 (45-73) % Lymph % (Auto) 21.1 (20-40) % [place] % (Auto) 7.8 (2-11) % Eos % (Auto) 1.7 (0-4) % Baso % (Auto) 0.4 (0-2) % Lymph # (Auto) 1.9 (1.2-4.9) X10*3/uL [place] # (Auto) 0.7 (0.1-1.2) X10*3/uL Eos # (Auto) 0.2 (0.0-0.4) X10*3/uL Baso # (Auto) 0.0 (0.0-0.2) X10*3/uL Abs Immat Gran (auto) 0.03 (0.00-0.03) X10*3/uL Absolute Neuts (auto) 6.2 (2.0-8.3) x10*3/uL Absolute Nucleated RBC 0.000 (0.0-0.012) X10*3/uL Nucleated RBC % (auto) 0.0 (0.0-0.2) /100WBC Sodium 142 (135-145) mmol/L Potassium 4.2 (3.3-5.1) mmol/L Chloride 110 H (96-108) mmol/L Carbon Dioxide 27 (22-29) mmol/L Anion Gap 9 L (12-20) BUN 15 (9-16) mg/dL Creatinine 0.77 (0.5-1.4) mg/dL Estim Creat Clear Calc 72.9 Estimated GFR > 60 Random Glucose 90 (60-115) mg/dL Calcium 9.2 D (8.4-10.2) mg/dL Total Bilirubin 0.5 (0.0-1.0) mg/dL AST 15 (5-31) U/L ALT 10 (0-31) U/L Alkaline Phosphatase 42 (39-117) U/L Total Protein 6.4 L (6.5-8.0) g/dL Albumin 4.3 (3.5-5.0) g/dL Beta HCG, Quant < 2 mIU/mL Urine Color Urine Appearance Urine pH (5.0-9.0) Ur Specific [place] (1.005-1.025) Urine Protein (Neg-Trace) mg/dL Urine Glucose (UA) (Negative) mg/dL Urine Ketones (Negative) mg/dL Urine Blood (Negative) Urine Nitrite (Negative) Ur Leukocyte Esterase (Negative) Urine RBC (0-2) /HPF Urine WBC (0-5) /HPF Ur Squamous Epith Cells (0-2) /HPF Urine Bacteria (None Seen) Hyaline Casts (0-2) /LPF Urine Test (NEGATIVE) 04/15/23 04/15/23 Range/Units 11:09 11:09 WBC (4.8-10.8) X10*3/uL RBC (4.20-5.50) X10*6/uL Hgb (12.0-16.0) g/dl Hct (37.0-47.0) % MCV (80.0-98.0) fL MCH (27.0-33.0) pg MCHC (31.0-35.0) g/dl RDW (11.0-16.0) % Plt Count (160-400) X10*3/uL MPV (9.4-12.3) fL Immature Gran % (Auto) (0.0-0.4) % Neut % (Auto) (45-73) % Lymph % (Auto) (20-40) % [place] % (Auto) (2-11) % Eos % (Auto) (0-4) % Baso % (Auto) (0-2) % Lymph # (Auto) (1.2-4.9) X10*3/uL [place] # (Auto) (0.1-1.2) X10*3/uL Eos # (Auto) (0.0-0.4) X10*3/uL Baso # (Auto) (0.0-0.2) X10*3/uL Abs Immat Gran (auto) (0.00-0.03) X10*3/uL Absolute Neuts (auto) (2.0-8.3) x10*3/uL Absolute Nucleated RBC (0.0-0.012) X10*3/uL Nucleated RBC % (auto) (0.0-0.2) /100WBC Sodium (135-145) mmol/L Potassium (3.3-5.1) mmol/L Chloride (96-108) mmol/L Carbon Dioxide (22-29) mmol/L Anion Gap (12-20) BUN (9-16) mg/dL Creatinine (0.5-1.4) mg/dL Estim Creat Clear Calc Estimated GFR Random Glucose (60-115) mg/dL Calcium (8.4-10.2) mg/dL Total Bilirubin (0.0-1.0) mg/dL AST (5-31) U/L ALT (0-31) U/L Alkaline Phosphatase (39-117) U/L Total Protein (6.5-8.0) g/dL Albumin (3.5-5.0) g/dL Beta HCG, Quant mIU/mL Urine Color Yellow Urine Appearance Cloudy Urine pH 6.0 (5.0-9.0) Ur Specific [place] >= 1.030 H (1.005-1.025) Urine Protein Trace (Neg-Trace) mg/dL Urine Glucose (UA) Negative (Negative) mg/dL Urine Ketones Trace (Negative) mg/dL Urine Blood Large (3+) H (Negative) Urine Nitrite Negative (Negative) Ur Leukocyte Esterase Trace H (Negative) Urine RBC >20 H (0-2) /HPF Urine WBC 11-20 H (0-5) /HPF Ur Squamous Epith Cells 11-20 (0-2) /HPF Urine Bacteria 1+ (None Seen) Hyaline Casts 3-5 (0-2) /LPF Urine Test NEGATIVE (NEGATIVE) Independent Interpretation I performed an independent interpretation of an: CT Scan (Positive right-sided hydronephrosis) Radiology Impression Discussion of test interpretation with radiology: I have reviewed the radiologist's reading. Radiologist Impression: CT/CT abdomen pelvis w IV con IMPRESSION: 1.? 4 mm obstructing proximal right ureteral calculus with associated hydronephrosis. 2.? Nonobstructing left renal calculus. 3.? Mild hepatomegaly with periportal edema of uncertain significance. Follow-up abdominal ultrasound is recommended after treatment of the obstructive uropathy. ? Fleischner guidelines were followed. Dictated By: Ayaz Paul MD Signed By: <Electronically signed by Ayaz Paul MD in [place]> 04/15/23 1139 Tests considered The following testing was considered but not selected: Ultrasound abdomen and pelvis, however, CT scan is more appropriate in the setting Prescription Management I considered prescription management with: Pain Medication and Antibiotic Chronic Conditions Patient?s care impacted by: Other (Kidney stone) Medications Administered Discontinued Medications Generic Name Dose Route Start Last Admin Trade Name Freq PRN Reason Stop Dose Admin Sodium Chloride 1,000 mls @ 999 mls/hr 04/15/23 07:45 04/15/23 08:28 Ns IV 04/15/23 08:45 999 mls/hr .Q1H1M JL Administration Iohexol 85 ml 04/15/23 10:22 04/15/23 10:22 Iohexol 350 Mg/Ml 100 Ml Infus..Btl IV 04/15/23 10:23 85 ml ONCE ONE Administration Ketorolac Tromethamine 15 mg 04/15/23 07:42 04/15/23 08:27 Ketorolac Tromethamine 15 Mg/Ml Vial IVPUSH 04/15/23 07:43 15 mg ONCE ONE Administration Ondansetron HCl 4 mg 04/15/23 07:42 04/15/23 08:27 Ondansetron Hcl 4 Mg/2 Ml Vial IVPUSH 04/15/23 07:43 4 mg ONCE ONE Administration Discharge Plan Discharge Clinical Impression: Acute right flank pain, Hepatomegaly, Ureterolithiasis Patient Disposition: Home, Self-Care Instructions: Renal Colic (ED), Ureteral Stones (ED) Additional Instructions: I am recommending routine follow-up with an ultrasound of the liver and kidney following resolution of your renal colic symptoms. Prescriptions: New ondansetron 4 mg tablet,disintegrating 4 mg PO Q8H PRN (Reason: nausea and vomiting) Qty: 10 0RF ibuprofen 800 mg tablet 800 mg PO Q8H PRN (Reason: pain) Qty: 14 0RF oxycodone 5 mg tablet 5 mg PO Q8H PRN (Reason: pain) Qty: 7 0RF Rx Instructions: Partial Fill upon patient request. No Action hydroxyzine HCl 25 mg tablet 25 mg PO TID PRN (Reason: anxiety) 2 Days Qty: 6 0RF ondansetron HCl [Zofran] 4 mg tablet 4 mg PO Q8H PRN (Reason: nausea and vomiting) 2 Days Qty: 6 0RF lorazepam [Ativan] 0.5 mg tablet 0.5 mg PO BID PRN (Reason: anxiety) Qty: 10 0RF Referrals: Flip Mckoy MD [Physician] - 3 days
[2023-04-15 11:10] VITALS: BP 96/46; PULSE 55; RESP 16; TEMP 36.5; O2SAT 98
== END 2023-04-15 12:16 | disposition home or self-care (01) ==
PROVIDERS: Emergency Provider Emergency Medicine; PCP Nurse Practitioner Family
DX: N20.1 Calculus of ureter (principal); K76.89 Other specified diseases of liver; R10.9 Unspecified abdominal pain; Z79.899 Other long term (current) drug therapy
CPT/HCPCS: 36415; 74177; 80053; 81001; 81025; 84702; 85025; 87086; 96361; 96374; 96375; 99284; 99285; J1885; J2405; Q9967

== ENCOUNTER 2023-04-15 23:17 | Day surgery (SDC) | payer OTHER, SELFPAY ==
--- NOTE | ~2023-04-15 | FL_ITS ---
EXAMINATION: XR FLUOROSCOPY WITH IMAGES CLINICAL INFORMATION: Cystoscopy COMPARISON: None available. TECHNIQUE: Fluoroscopy Supervised By: Dr. Mckoy. Fluoroscopy Time: 23.3 seconds. Cumulative Dose: 3.39 mGy. DAP: Gycm2. Not provided on this equipment Images: 2. FINDINGS: Contrast opacifies the intrarenal collecting system and proximal ureter on the right. The upper aspect of the stent is coiled in the region of the upper pole infundibulum FL/FL guidance in [place] IMPRESSION: Imaging assistance provided during a urologic procedure
[2023-04-15 23:24] VITALS: BP 103/51; PULSE 69; RESP 18; TEMP 36.4; O2SAT 99; BMI 17.4
--- NOTE | 2023-04-15 23:59 | ED_ITS ---
HPI - Female Genitourinary General Chief complaint: Urogenital-Female Stated complaint: Flank pain Time Seen by Provider: 04/15/23 23:58 Source: patient Mode of arrival: ambulatory Limitations: no limitations History of Present Illness HPI Narrative: Patient with history of anxiety and kidney stone had 4 mm obstructive proximal right ureteric stone seen here earlier discharged after pain control comes back as pain is continuing and getting worse unable to get the pain medication as prescribed patient been throwing up and pain is worse than earlier in the morning Related Data Previous Rx's Medication Instructions Recorded hydroxyzine HCl 25 mg tablet 25 mg PO TID PRN anxiety 2 days #6 08/23/20 tabs ondansetron HCl 4 mg tablet 4 mg PO Q8H PRN nausea and 08/23/20 (Zofran) vomiting 2 days #6 tabs lorazepam 0.5 mg tablet (Ativan) 0.5 mg PO BID PRN anxiety #10 tabs 09/22/20 ibuprofen 800 mg tablet 800 mg PO Q8H PRN pain #14 tabs 04/15/23 ondansetron 4 mg disintegrating 4 mg PO Q8H PRN nausea and 04/15/23 tablet vomiting #10 tabs oxycodone 5 mg capsule 5 mg PO Q8H PRN severe 04/15/23 breakthrough pain #2 caps oxycodone 5 mg tablet 5 mg PO Q8H PRN pain #7 tabs 04/15/23 Allergies Allergy/AdvReac Type Severity Reaction Status Date / Time SEASONAL ALLERGIES Allergy Intermediate SNEEZING Uncoded 06/23/20 16:34 Review of Systems Review of Systems: Yes all other systems are reviewed and are negative [facility] Past Medical History Medical History Anxiety Asthma Depression Kidney calculi Social History Social History Alcohol intake: current Alcohol intake frequency: a few times a week Substance Use Type: Marijuana Advance Directives: No Advance Directives Information Provided: No Physical Exam Vital Signs: Vital Signs: Last Vital Signs Temp 97.6 F 04/15/23 23:24 Pulse 69 04/15/23 23:24 Resp 18 04/15/23 23:24 BP 103/51 L 04/15/23 23:24 Pulse Ox 99 04/15/23 23:24 O2 Del Method Room Air 04/15/23 23:24 BMI result Body Mass Index 17.4 Appearance: Alert. Oriented X3. Moderate distress ENT: Pharynx normal. Oral Mucosa moist Neck: Normal inspection. Neck supple. CVS: Normal heart rate and rhythm. Pulses normal. Respiratory: No respiratory distress. Equal air entry bilateral, no wheezing/rales/rhonchi Abdomen: Soft and nontender. Bowel sounds are present, no mass palpable, R CVA tenderness++ Skin: Skin warm and dry. Normal skin color. Normal skin turgor. Extremities: No lower extremity edema. No calf tenderness Neuro: Oriented X 3. No motor deficit. Medications Administered Generic Name Dose Route Start Last Admin Trade Name Freq PRN Reason Stop Dose Admin Sodium Chloride 1,000 mls @ 999 mls/hr 04/15/23 23:59 04/16/23 00:27 Ns IV 04/16/23 00:59 999 mls/hr .Q1H1M ONE Administration Discontinued Medications Generic Name Dose Route Start Last Admin Trade Name Freq PRN Reason Stop Dose Admin Ketorolac Tromethamine 30 mg 04/15/23 23:59 04/16/23 00:26 Ketorolac Tromethamine 30 Mg/Ml Vial IVPUSH 04/16/23 00:00 30 mg ONCE ONE Administration Morphine Sulfate 4 mg 04/15/23 23:59 04/16/23 00:26 Morphine Sulfate 4 Mg/Ml Cartridge IVPUSH 04/16/23 00:00 4 mg ONCE ONE Administration Protocol Ondansetron HCl 4 mg 04/15/23 23:59 04/16/23 00:26 Ondansetron Hcl 4 Mg/2 Ml Vial IVPUSH 04/16/23 00:00 4 mg ONCE ONE Administration Medical Decision Making Medical Decision Making [facility] Narrative: Patient obstructive right ureteric stone 2nd visit for same pain which is getting worse is vomiting will admit patient for pain control urologist Dr. Beauchamp to evaluate her in the a.m. Consult Healthcare Provider Management of the patient was discussed with: Hospitalist Independent Interpretation I performed an independent interpretation of an: CT Scan Radiology Impression Discussion of test interpretation with radiology: I have reviewed the radiologist's reading. Radiologist Impression: CT/CT abdomen pelvis w IV con IMPRESSION: 1.? 4 mm obstructing proximal right ureteral calculus with associated hydronephrosis. 2.? Nonobstructing left renal calculus. 3.? Mild hepatomegaly with periportal edema of uncertain significance. Follow-up abdominal ultrasound is recommended after treatment of the obstructive uropathy. Discharge Plan Discharge Clinical Impression: Ureterolithiasis Patient Disposition: Admitted As Inpatient
[2023-04-16] VITALS (14 sets, daily range): BP systolic 81–120; BP diastolic 36–86; PULSE 50–75; RESP 16–22; TEMP 36.4–37; O2SAT 92–99
[2023-04-16] MEDS: ondansetron HCL 4 MG/2 ML VIAL IVPUSH ×3 (00:26→09:54)
[2023-04-16] MEDS: Morphine Sulfate 4 MG/ML CARTRIDGE IVPUSH (00:26)
[2023-04-16] MEDS: Ketorolac Tromethamine 30 MG/ML VIAL IVPUSH (00:26)
[2023-04-16] MEDS: 0.9 % Sodium Chloride 1,000 ML 999 ML IV ×2 (00:27→02:20)
[2023-04-16] MEDS: Tamsulosin HCL 0.4 MG CAPSULE PO (00:42)
[2023-04-16] MEDS: HYDROmorphone HCl 1 MG/ML SYRINGE IVPUSH ×3 (02:20→10:00)
[2023-04-16] MEDS: Ketorolac Tromethamine 15 MG/ML VIAL IVPUSH (05:36)
--- NOTE | 2023-04-16 09:24 | PM.UROCN ---
History of Present Illness Consult details Consult date: 04/16/23 Narrative: Consulting complaint right proximal ureteric stone 27-year-old female 2nd presentation to emergency room with right flank pain, persistent nausea, inability to maintain oral intake Prior history kidney stones 8-10 years ago treated with ESWL Creatinine 0.7, WBC 9.0 Imaging - ?There is a 4 mm obstructing stone in the proximal right ureter with associated right hydronephrosis Based on inability to maintain oral intake recommend cystoscopy, right retrograde, right stent placement She understands definitive stone management may take place once other symptoms have resolved may include he either ureteroscopy or ESWL Review of Systems Constitutional: Constitutional: Reports as per HPI and Reports no additional constitutional complaints Cardiovascular: Cardiovascular: Reports as per HPI and Reports no additional cardiovascular complaints Respiratory: Respiratory: Reports as per HPI and Reports no additional respiratory complaints Gastrointestinal: Gastrointestinal: Reports as per HPI and Reports no additional gastrointestinal complaints Genitourinary: Genitourinary: Reports as per HPI Musculoskeletal: Musculoskeletal: Reports no additional musculoskeletal complaints and Reports as per HPI Neurologic: Reports system reviewed and no additional complaints, except as documented and Reports as per HPI PMF Past Medical History Medical History Anxiety Asthma Depression Kidney calculi Social History Social History Alcohol intake: never Smoked in Last 30 Days: No Use of substances other than those prescribed or required for medical reasons: No Substance Use Type: Marijuana Advance Directives: No Advance Directives Information Provided: No Patient : No Meds Allergies Allergy/AdvReac Type Severity Reaction Status Date / Time SEASONAL ALLERGIES Allergy Intermediate SNEEZING Uncoded 06/23/20 16:34 Active Medications: Current Medications Hydromorphone HCl (Hydromorphone Hcl 1 Mg/Ml Syringe) 1 mg IVPUSH Q4H PRN; Protocol PRN Reason: Pain, Severe (Pain Scale 7-10) Last Admin: 04/16/23 06:23 Dose: 1 mg Ondansetron HCl (Ondansetron Hcl 4 Mg/2 Ml Vial) 4 mg IVPUSH Q6H PRN PRN Reason: Vomiting Last Admin: 04/16/23 02:20 Dose: 4 mg Physical Exam Vital Signs: Vital Signs: Last Vital Signs Temp 97.6 F 07/11/23 08:42 Pulse 62 04/16/23 08:42 Resp 16 04/16/23 08:42 BP 100/36 L 04/16/23 08:42 Pulse Ox 97 04/16/23 08:42 O2 Del Method Room Air 04/16/23 08:42 BMI result Body Mass Index 17.4 Const: General: cooperative, healthy appearing, comfortable and no acute distress Orientation/consciousness: patient oriented x3 HEENT: Face and sinus: Yes normal facial exam Mouth: moist mucous membranes Neck: Neck: Yes normal visual inspection, Yes full ROM and Yes trachea midline Chest: Chest palpation & inspection: normal inspection of the chest Resp: Effort & Inspection: normal respiratory effort, able to speak in complete sentences and no respiratory distress GI: Inspection: Yes normal to inspection Back/Spine/Pelvis: Cervical Spine: normal cervical lordosis Thoracic/Lumbar Spine: thoracic and lumbar spine normal to inspection Skin: General skin exam: no rashes or lesions noted Neuro: General: patient oriented x3, tone normal and moves all extremities Extrem: General: Yes normal to inspection and Yes capillary refill normal Results Labs Labs: All other labs normal. Assessment and Plan (1) Ureterolithiasis: Status: Acute Plan Risks, benefits and alternatives to therapy were discussed. These include but are not limited to infection, bleeding, damage to local organs and tissues, need for further interventions. Anesthetic risks regarding cardiac arrhythmia, blood clots, and potential mortality were discussed. The patient understands the typical recovery time and the outpatient nature of the procedure. After consideration of these risks the patient gives full informed consent and they wish to move ahead with the procedure. Cystoscopy, right retrograde, right stent placement Time Spent With Patient Time: Total time managing care of this patient today ____ minutes. Procedures Date of Service Date of Service: 04/16/23
--- NOTE | 2023-04-16 09:59 | PHA.MEDREC ---
Pharmacy Consult ? Medication Reconciliation Pharmacy has completed the medication reconciliation. Pt able to name all home medications, dose strength, and last taken
--- NOTE | 2023-04-16 10:06 | PC.NURSE ---
covering for primary RN. pt reports 10/10 flank pain. iv nausea med and pain med given as ordered. pt pending surgical procedure.
--- NOTE | 2023-04-16 10:15 | PC.NURSE ---
Report to [place] in OR
--- NOTE | 2023-04-16 10:36 | HO.ANESPROP2 ---
HPI - Anesthesia Eval Consult details Narrative: cysto PMFSH Active Problems Active Problems: All Active Problems (Updated 04/16/23 @ 00:31 by Juliano Andrews) Ureterolithiasis (Acute) Past Medical History Medical History Anxiety Asthma Depression Kidney calculi Family History Family history of problems with anesthesia: No Surgical History History of Problems with Anesthesia: No Social History Social History Alcohol intake: never Smoked in Last 30 Days: No Use of substances other than those prescribed or required for medical reasons: No Substance Use Type: Marijuana Advance Directives: No Advance Directives Information Provided: No Patient : No Meds Allergies Allergy/AdvReac Type Severity Reaction Status Date / Time SEASONAL ALLERGIES Allergy Intermediate SNEEZING Uncoded 06/23/20 16:34 Active Medications: Current Medications Hydromorphone HCl (Hydromorphone Hcl 1 Mg/Ml Syringe) 1 mg IVPUSH Q4H PRN; Protocol PRN Reason: Pain, Severe (Pain Scale 7-10) Last Admin: 04/16/23 10:00 Dose: 1 mg Ondansetron HCl (Ondansetron Hcl 4 Mg/2 Ml Vial) 4 mg IVPUSH Q6H PRN PRN Reason: Vomiting Last Admin: 04/16/23 09:54 Dose: 4 mg Home Medications Medication Instructions Recorded Confirmed Last Taken Type clonazepam 0.5 mg tablet 0.5 mg PO BID PRN anxiety 04/16/23 04/16/23 Unknown History escitalopram oxalate 20 mg tablet 20 mg PO DAILY 04/16/23 04/16/23 04/15/23 History mirtazapine 7.5 mg tablet 7.5 mg PO BEDTIME 04/16/23 04/16/23 04/14/23 History Exam Exam Date and Time: April 16, 2023 1036 Height,Weight and Vital Signs: Height 5 ft 1 in Weight 41.73 kg Last Vital Signs Temp 97.6 F 04/16/23 08:42 Pulse 62 04/16/23 08:42 Resp 16 04/16/23 08:42 BP 100/36 L 04/16/23 08:42 Pulse Ox 97 04/16/23 08:42 O2 Del Method Room Air 04/16/23 08:42 Airway Mallampati Class: II TM Dist: >3cm Neck ROM: Full Heart: rrr Lungs: cta Assessment and Plan Assessment Anesthesia Assessment: Anesthesia Plan Discussed and Chart Reviewed Final Anesthetic Review Family History of Problems with Anesthesia: No History of Problems with Anesthesia: No NPO: Yes ASA Class: I Final Preanesthetic Review: No Changes in Pt Med Stat, Meds/Allgs Chart Reviewed, Consent Obtained/Reviewed and Anes Risks/Benef Reviewed Patient Risk: Low Procedure Risk: Intermediate Anesthetic Plan Anesthetic Plan: GA and Agree w/ Assess. and Plan Disposition: Standard PACU
--- NOTE | 2023-04-16 12:55 | MHC.SHP ---
Pre-Procedural Eval Section A Date of Service: 04/16/23 The patient is an INPATIENT: No The History & Physical has been completed within 30 days and I have reviewed it.: Yes Section B Chief Complaint: Flank pain, right proximal ureteral stone Allergies: Allergies Allergy/AdvReac Type Severity Reaction Status Date / Time SEASONAL ALLERGIES Allergy Intermediate SNEEZING Uncoded 06/23/20 16:34 Plan Diagnosis/Plan: Unchanged I have reviewed the history and physical and performed a pertinent physical examination on my patient. No changes have occurred unless specified. Cysto, right ureteral stent, possible ureteroscopy, laser Time Spent With Patient Time: Total time managing care of this patient today ____ minutes.
--- NOTE | 2023-04-16 14:12 | W.PM.OPN ---
Operative Note Operative Note Date of Service: 04/16/23 Narrative: PreOperative Diagnosis:?? right ureteral stone Post Operative Diagnosis:?? ?right ureteral stone Procedure: - cystoscopy, right retrograde - right stent placement 6 fr by 24 cm Surgeon:?Dr Flip Mckoy Anesthesia:? General Indications for procedure: Remedios is a 27 year old female admitted with right flank pain, CTAP findings: right 4 mm proximal ureteral stone with obstruction. Procedure: After informed consent was verified the patient was brought to the operating placed on the OR table in supine position.? General Anesthesia was administered per protocol.? The patient was placed in lithotomy position, prepped and draped in the usual sterile fashion.? Safety pause time-out and side of surgery confirmed.? Antibiotics confirmed. A 22 Slovenian cystoscope was inserted transurethrally, The bladder was visualized.? Both ureteric orifices were in normal position. The? right ureteric orifice was cannulated? and a retrograde examination was performed, A hydrophilic guidewire was placed up to the level of the renal pelvis under fluoroscopy. A? 6 Slovenian by 24 length stent was placed into the ureter and renal pelvis under a combination of fluoroscopy and direct visualization. The bladder was emptied.? The rigid cystoscope was removed. ? The patient tolerated the procedure well and was brought to the recovery room in stable condition. Complications: None Drains: Ureteral stent as dictated above
--- NOTE | 2023-04-16 14:14 | PM.DS ---
DS: Providers Provider Date of Service: 04/16/23 Date of discharge: 04/16/23 Primary care physician: Naz He NP Admitting clinician: Frank Beauchamp Attending physician on admission: Frank Beauchamp Attending physician on discharge: lFip Mckoy Discharging clinician: Flip Mckoy DS: Diagnosis Discharge Diagnosis (1) Ureterolithiasis: Status: Acute DS: Summary Hospital Course Hospital Course: Right ureteral stent placed. 6 fr by 24 cm Status at Discharge Functional status at discharge: independent ambulation Time Spent with Patient Time attestation: Total time managing care of this patient today ____ minutes. Discharge coordination time: Less than 30 minutes Quality: Safe Use of Opioids Does Pt have an Active Cancer Diagnosis on the Problem List?: No Quality: Stroke Does the patient have a stroke diagnosis?: No Physical Exam Vital Signs: Vital Signs: Last Vital Signs Temp 98.0 F 04/16/23 14:00 Pulse 56 04/16/23 14:05 Resp 16 04/16/23 14:05 BP 89/49 L 04/16/23 14:05 Pulse Ox 92 04/16/23 14:05 O2 Del Method Room Air 04/16/23 14:05 BMI result Body Mass Index 17.4 Discharge Plan Discharge Clinical Impression: Ureterolithiasis Patient Disposition: Home, Self-Care Additional Instructions: Follow up with Dr. Oliver Fraga in 7-10 days, KUB Xray prior to discuss plan for stone management. Prescriptions: New hydroxyzine pamoate [Vistaril] 25 mg capsule 25 mg PO BEDTIME Qty: 30 0RF No Action clonazepam 0.5 mg tablet 0.5 mg PO BID PRN (Reason: anxiety) escitalopram oxalate 20 mg tablet 20 mg PO DAILY mirtazapine 7.5 mg tablet 7.5 mg PO BEDTIME Referrals: Naz He NP [Primary Care Provider] - Interventions: Admission Worksheet (ED) Last Done: 04/16/23 12:31
[2023-04-16] MEDS: fentaNYL citrate/PF 100 MCG/2 ML VIAL 25 MCG IVPUSH (14:27)
[2023-04-16] MEDS: Phenazopyridine HCL 200 MG TABLET PO (14:31)
== END 2023-04-16 15:40 | disposition home or self-care (01) ==
LOC: HO.ED 04-16 16:14 → HO.SSS 04-16 16:56
PROVIDERS: Emergency Provider Internal Medicine; PCP Nurse Practitioner Family; Visit Provider Urology
PROC: (CPT 52332; principal; 2023-04-16 13:20)
DX: N13.2 Hydronephrosis with renal and ureteral calculous obstruction (principal); J45.909 Unspecified asthma, uncomplicated; Z79.899 Other long term (current) drug therapy
CPT/HCPCS: 52332; 99285; C1758; C2617; J1100; J1170; J1885; J1956; J2270; J2405; J3010; Q9967

== ENCOUNTER → 2023-04-15 23:50 | Outpatient (BNV) | payer OTHER, SELFPAY | PROVIDERS: Emergency Provider Internal Medicine; PCP Nurse Practitioner Family; Visit Provider Urology | DX: N20.1 Calculus of ureter (principal) | CPT/HCPCS: 52282; 99284; 99499 ==

== ENCOUNTER 2023-04-26 09:32 | Outpatient (AMB) | payer OTHER, SELFPAY ==
--- NOTE | 2023-04-26 06:51 | A.OFFVIS_ITS ---
Intake Intake Visit Reasons: post op follow up Intake Note: NEW Patient presents today to established treatment for Post Op Ureterolithiasis: Meds- Pyridium Allergies to Antibiotic- No Known Allergies Blood Thinner- None Director Of Grants Required: No Accompanied by: Self / Same As Patient Allergies SEASONAL ALLERGIES Allergy (Intermediate, Uncoded 06/23/20 16:34) SNEEZING HPI HPI Comments History of Present Illness Details Remedios is a 27-year-old female who presents today to the office for a postoperative follow-up. 04/26/2023-- Remedios is a 27-year-old who was initially evaluated as an inpatient for right- sided flank pain secondary to an obstructing right renal stone. She is status post right ureteral stent on 04/16/23. Results reviewed ? Discussed with the patient the CAT scan on 04/15/23 was done with contrast and noted a 4 mm obstructing stone in the proximal right ureter. Also there is a nonobstructing 4 mm stone in the left upper pole kidney. She is complaining of fatigue, She is prescribed Vistaril and Pyridium due to LUTS secondary to ureteral stent. I will fill out a work note to reduce work day responsibilities to 5 hr work day. Evaluation today-- UA 04/26/23-- Blood: 3+ Tiburcio/uL. Leukocytes: 15 Gabrielle/uL. Plan: CAT scan results were reviewed with the patient in detail today. Right ureteroscopy, laser lithotripsy and stent exchange discussed to be scheduled. Risks discussed included but not limited to, possible need to repeat procedure if stone is not completely fragmented, Irritative voiding symptoms, bladder spasms, urgency, blood in urine. Will write a work note for accommodations due to the stent being placed and the required medication that I have prescribed Vistaril and Pyridium which both cause some drowsiness. [facility] Medical History Anxiety Asthma Depression Kidney calculi Surgical History Status post placement of ureteral stent Family History Father No problems noted. Mother No problems noted. Social History Alcohol intake: never Patient Tobacco Use Status: Never used Tobacco Second Hand Smoke Exposure: No Substance Use Type: Marijuana Review of Systems Const All systems reviewed & are unremarkable except as noted in HPI and below Reports no additional complaints Eyes Reports no additional complaints ENT Reports no additional complaints Card Denies dyspnea Resp Denies cough and Denies dyspnea GI Reports no additional complaints Reports no additional complaints Musc Reports no additional complaints Skin/Breast Denies rash and Denies unusual bruising Neuro Reports no additional complaints Psych Reports no additional complaints Endo Reports no additional complaints Genaro/Lymph Reports no additional complaints Aller/Immun Reports no additional complaints Physical Exam Const General: cooperative, healthy appearing and no acute distress Orientation/consciousness: patient oriented x3 HEENT Head: Yes normal to inspection, Yes normocephalic and Yes atraumatic Eyes Conjunctivae: conjunctivae normal Neck Neck: Yes normal visual inspection and Yes trachea midline Chest Chest palpation & inspection: normal inspection of the chest Resp Effort & Inspection: normal respiratory effort Cardio Rate: regular rate GI Inspection: Yes normal to inspection Neuro General: patient oriented x3 Extrem General: No edema Psych Appearance: grossly normal Results AMB Urinalysis, Automated UA Leukoctes 15 Gabrielle/uL Last Edit by MICHAELA Larsen on 04/26/23 10:01 UA Nitrite Negative Last Edit by MICHAELA Larsen on 04/26/23 10:01 UA Urobilinogen 0 mg/dL Last Edit by MICHAELA Larsen on 04/26/23 10:01 UA Protein 30 mg/dL Last Edit by MICHAELA Larsen on 04/26/23 10:01 1+ Janina Sanchez 04/26/23 10:01 UA pH 6.0 Last Edit by MICHAELA Larsen on 04/26/23 10:01 UA Blood 200 Tiburcio/uL Last Edit by MICHAELA Larsen on 04/26/23 10:01 3+ Janina Sanchez 04/26/23 10:01 UA Specific [place] 1.025 Last Edit by Sallybull Sanchez MICHAELA on 04/26/23 10: 01 UA Ketone Negative Last Edit by Crystalandreia Daniel MICHAELA on 04/26/23 10:01 UA Bilirubin 0 mg/dL Last Edit by Sallybull Sanchez MICHAELA on 04/26/23 10:01 UA Glucose 0 mg/dL Last Edit by Janina Sanchez Yue on 04/26/23 10:01 Results Reviewed Results Reviewed: Laboratory Last Values Urine pH (Auto) 6.0 04/26/23 09:56 Specific [place] (Auto) 1.025 04/26/23 09:56 Urine Protein (Auto) 30 mg/dL 04/26/23 09:56 Glucose (UA)(Auto) 0 mg/dL 04/26/23 09:56 Urine Ketones (Auto) Negative 04/26/23 09:56 Urine Blood (Auto) 200 Tiburcio/uL 04/26/23 09:56 Urine Nitrite (Auto) Negative 04/26/23 09:56 Urine Bilirubin (Auto) 0 mg/dL 04/26/23 09:56 Urine Urobilinogen (Auto) 0 mg/dL 04/26/23 09:56 Leukocyte Esterase (Auto) 15 Gabrielle/uL 04/26/23 09:56 Date of service: 04/15/23 EXAMINATION: CT ABDOMEN AND PELVIS WITH CONTRAST? CLINICAL INFORMATION: Right flank pain rule out stone? COMPARISON: Ultrasound abdomen 09/22/2020, CT abdomen pelvis 08/23/2020 FINDINGS: LUNG BASES: The visualized lung bases are unremarkable.? LIVER, GALLBLADDER, AND BILIARY TREE: A few hypodensities are seen in the liver consistent with cysts. There is periportal edema present which is new when compared to the prior study. No intrahepatic biliary ductal dilatation is seen. The liver is mildly enlarged at 17.9 cm in greatest dimension. Hypodensity adjacent to the falciform ligament may represent focal fat. The gallbladder is unremarkable with no evidence of radiopaque gallstones, gallbladder wall thickening, or obvious pericholecystic inflammatory changes.? PANCREAS: Unremarkable.? SPLEEN: Unremarkable.? ADRENAL GLANDS: Unremarkable.? KIDNEYS AND URETERS: There is a 4 mm obstructing stone in the proximal right ureter with associated right hydronephrosis. Calculus measures 530 Hounsfield units and 10 cm from the posterior axillary line. There is a nonobstructing 4 mm calculus present in the left upper pole calyx which measures 686 Hounsfield units and is5 cm from the posterior axillary line. Kidneys otherwise appear normal. BLADDER: Unremarkable.? GASTROINTESTINAL TRACT: The small and large bowel are unremarkable. The appendix is unremarkable.? ABDOMINAL WALL: No significant hernia is appreciated.? LYMPH NODES: No retroperitoneal lymphadenopathy. VASCULAR: Unremarkable. PELVIC VISCERA: Unremarkable. A benign-appearing right ovarian cyst is present. Tiny bit of free fluid present in the cul-de-sac. OSSEOUS STRUCTURES: Unremarkable. IMPRESSION: 1.? 4 mm obstructing proximal right ureteral calculus with associated hydronephrosis. 2.? Nonobstructing left renal calculus. 3.? Mild hepatomegaly with periportal edema of uncertain significance. Follow-up abdominal ultrasound is recommended after treatment of the obstructive uropathy. ? Fleischner guidelines were followed. Assessment & Plan Assessment & Plan (1) Bilateral nephrolithiasis: Code(s): N20.0 - Calculus of kidney (2) Right ureteral stone: Code(s): N20.1 - Calculus of ureter (3) Hydronephrosis, right: Code(s): N13.30 - Unspecified hydronephrosis (4) Fatigue: Code(s): R53.83 - Other fatigue (5) Medication side effects: Code(s): T88.7XXA - Unspecified adverse effect of drug or medicament, initial encounter Plan CAT scan results were reviewed with the patient in detail today. Will write a work note for accommodations due to the stent being placed and the required medication that I have prescribed Vistaril and Pyridium which both cause some drowsiness. Right ureteroscopy, laser lithotripsy and stent exchange discussed to be scheduled. Risks discussed included but not limited to, possible need to repeat procedure if stone is not completely fragmented, Irritative voiding symptoms, bladder spasms, urgency, blood in urine. Orders: Orders AMB Urinalysis Automated 04/26/23 Z13.9 - Encounter for screening, unspecified Patient Instructions: The patient had an opportunity to ask questions regarding treatment plan. All questions were answered. Imaging, Laboratory studies and physical exam results were discussed and reviewed in detail. No major barriers to understanding were identified. The patient expressed understanding and agreement with the above treatment plan. The patient is aware they should contact our office by phone for worsening of their current condition or the appearance of new symptoms. Compliance is encouraged with any medications and followup testing that is ordered. It is a privilege to be allowed the opportunity to participate in the urologic care of your patient. If you have any questions or concerns regarding treatment for the above conditions please do not hesitate to contact me. The office telephone contact is [phone]. This note is constructed in part using voice recognition software. While every effort has been made to ensure accuracy mechanical designer errors may have been included. Yours sincerely, Flip Mckoy MD Coding Level of Care Code Est Pt Level 4 (23172) Diagnoses Bilateral nephrolithiasis N20.0 Right ureteral stone N20.1 Hydronephrosis, right N13.30 Fatigue R53.83 Medication side effects T88.7XXA
== END 2023-04-26 10:33 | disposition home or self-care (01) ==
PROVIDERS: PCP Nurse Practitioner Family; Visit Provider Urology
DX: N13.2 Hydronephrosis with renal and ureteral calculous obstruction (principal); R53.83 Other fatigue; T88.7XXA Unspecified adverse effect of drug or medicament, initial encounter
CPT/HCPCS: 99214

== ENCOUNTER → 2023-04-26 09:32 | Outpatient (BNVA) | payer OTHER, SELFPAY | PROVIDERS: PCP Nurse Practitioner Family; Visit Provider Urology ==

== ENCOUNTER 2023-04-30 08:57 | Day surgery (SDC) | payer OTHER, SELFPAY ==
--- NOTE | 2023-04-29 14:03 | P.CONAN_ITS ---
Documented by User: Cherise Bolivar NP 04/29/23 14:22 HPI - Anesthesia Eval Consult details Narrative: 27yo F for Right Cystoscopy, Ureteroroscopy, Retro, Laser, with stent exchange s/p cysto, stent 04/16/23 with GA-LMA 3 PMFSH Active Problems Active Problems: All Active Problems (Updated 04/26/23 @ 15:01 by Flip Mckoy MD) Medication side effects (Acute) Fatigue (Acute) Hydronephrosis, right (Acute) Right ureteral stone (Acute) Bilateral nephrolithiasis (Acute) Ureterolithiasis (Acute) Past Medical History Medical History Anxiety Asthma Depression Kidney calculi Family History Family History Father No problems noted. Mother No problems noted. Family history of problems with anesthesia: No Surgical History Surgical History Status post placement of ureteral stent History of Problems with Anesthesia: No Social History Social History Alcohol intake: never Patient Tobacco Use Status: Never used Tobacco Second Hand Smoke Exposure: No Use of substances other than those prescribed or required for medical reasons: Yes Substance Use Type: Marijuana Are you DNR?: No Advance Directives: No Advance Directives Information Provided: Yes Advance Directives on File: No Meds Allergies Allergy/AdvReac Type Severity Reaction Status Date / Time SEASONAL ALLERGIES Allergy Intermediate SNEEZING Uncoded 06/23/20 16:34 Home Medications Medication Instructions Recorded Confirmed Last Taken Type clonazepam 0.5 mg tablet 0.5 mg PO BID PRN anxiety 04/16/23 04/16/23 Unknown History escitalopram oxalate 20 mg tablet 20 mg PO DAILY 04/16/23 04/16/23 04/15/23 History mirtazapine 7.5 mg tablet 7.5 mg PO BEDTIME 04/16/23 04/16/23 04/14/23 History Exam Exam Date and Time: April 29, 2023 140 Pertinent Lab Results Pertinent Lab Results: Laboratory Tests 04/15/23 04/15/23 07:54 07:54 WBC 9.0 Hgb 11.1 L Hct 34.2 L Plt Count 192 Sodium 142 Potassium 4.2 Chloride 110 H Carbon Dioxide 27 BUN 15 Creatinine 0.77 Assessment and Plan Assessment Anesthesia Assessment: Chart Reviewed Final Anesthetic Review Family History of Problems with Anesthesia: No History of Problems with Anesthesia: No Documented by User: Elida Harkins MD 04/30/23 10:33 [facility] Past Medical History Medical History Anxiety Asthma Depression Kidney calculi Family History Family History Father No problems noted. Mother No problems noted. Surgical History Surgical History Status post placement of ureteral stent Social History Social History Alcohol intake: never Patient Tobacco Use Status: Never used Tobacco Second Hand Smoke Exposure: No Use of substances other than those prescribed or required for medical reasons: Yes Substance Use Type: Marijuana Are you DNR?: No Advance Directives: No Advance Directives Information Provided: Yes Advance Directives on File: No Meds Allergies Allergy/AdvReac Type Severity Reaction Status Date / Time SEASONAL ALLERGIES Allergy Intermediate SNEEZING Uncoded 06/23/20 16:34 Home Medications Medication Instructions Recorded Confirmed Last Taken Type clonazepam 0.5 mg tablet 0.5 mg PO BID PRN anxiety 04/16/23 04/16/23 Unknown History escitalopram oxalate 20 mg tablet 20 mg PO DAILY 04/16/23 04/16/23 04/15/23 History mirtazapine 7.5 mg tablet 7.5 mg PO BEDTIME 04/16/23 04/16/23 04/14/23 History Exam Airway Mallampati Class: I TM Dist: >3cm Neck ROM: Full Loose/Missing/Broken Teeth: No Heart: rr Lungs: cta Assessment and Plan Assessment Anesthesia Assessment: Anesthesia Plan Discussed Final Anesthetic Review NPO: Yes ASA Class: II Final Preanesthetic Review: No Changes in Pt Med Stat, Meds/Allgs Chart Reviewed, Consent Obtained/Reviewed and Anes Risks/Benef Reviewed Patient Risk: Low Procedure Risk: Low Anesthetic Plan Anesthetic Plan: GA Disposition: Standard PACU
[2023-04-30] VITALS (8 sets, daily range): BP systolic 106–120; BP diastolic 46–81; PULSE 50–104; RESP 16–21; TEMP 36.4–36.6; O2SAT 98–100; BMI 17.4
--- NOTE | ~2023-04-30 | FL_ITS ---
EXAMINATION: XR FLUOROSCOPY WITH IMAGES CLINICAL INFORMATION: Right retrograde pyelogram. COMPARISON: None available. TECHNIQUE: Fluoroscopy Supervised By: Dr. Flip Mckoy. Fluoroscopy Time: 21.8 seconds. Cumulative Dose: 3.9 mGy. DAP: Not available. Images: 4. FINDINGS: There are 4 digital images revealing guidewire and disc over the right renal pelvis. The subsequent images reveal contrast opacifying the right kidney pelvis. No intraluminal filling defect, narrowing or irregularity seen involving the right renal pelvis. FL/FL guidance in OR IMPRESSION: Fluoroscopy guidance was provided to referring physician during right retrograde pyelogram.
[2023-04-30 09:28] LABS: UPreg QC Valid YES; Urine Pregnancy NEGATIVE (NEGATIVE)
[2023-04-30] MEDS: Scopolamine 1.5 MG PATCH.TD.3 TRANSDERMA (11:33)
--- NOTE | 2023-04-30 12:39 | MHC.SHP ---
Pre-Procedural Eval Section A Date of Service: 04/30/23 The patient is an INPATIENT: No The History & Physical has been completed within 30 days and I have reviewed it.: Yes Section B Chief Complaint: Calculus of ureter Allergies: Allergies Allergy/AdvReac Type Severity Reaction Status Date / Time SEASONAL ALLERGIES Allergy Intermediate SNEEZING Uncoded 06/23/20 16:34 Plan Diagnosis/Plan: Unchanged I have reviewed the history and physical and performed a pertinent physical examination on my patient. No changes have occurred unless specified. Plan for Cystoscopy, Right ureteroscopy, possible laser lithotripsy, possible ureteral stent exchange. Risks discussed included but not limited to, possible need to repeat procedure if stone is not completely fragmented, Irritative voiding symptoms, bladder spasms, urgency, blood in urine. Time Spent With Patient Time: Total time managing care of this patient today ____ minutes.
[2023-05-04 21:59] LABS: Stone Source KIDNEY
--- NOTE | 2023-05-21 12:26 | W.PM.OPN ---
Operative Note Operative Note Date of Service: 04/30/23 Narrative: PreOperative Diagnosis:?? Right ureteral stone Post Operative Diagnosis:?? Right renal stone Procedure: ??Cystoscopy,? Disposible Flexible Ureteroscope ? Right ureteroscopy ? laser lithotripsy ? stent exchange, ? size 6 Moroccan by 24 cm Surgeon:?Pat Mckoy Anesthesia:? General Indications for procedure:???Here for stone fragmentation. Procedure: After informed consent was verified the patient was brought to the operating placed on the OR table in supine position.? General Anesthesia was administered per protocol.? The patient was placed in? lithotomy position, prepped and draped in the usual sterile fashion.? Safety pause time-out and side of surgery confirmed.? Antibiotics confirmed.? A 22 Moroccan cystoscope was inserted transurethrally,? The bladder was visualized.? Both ureteric orifices were in normal position. ? The ureteral stent was curled in the bladder.? The? distal end of the ureteral stent ? was grasped with the flexible grasping forceps. ? The stent was pulled retrograde through the urethra. ? A guidewire was passed through the stent. The cystoscope was removed,? leaving the? guidewire in place. ? The guidewire was used as the safety and was attached to the draping.? The semi-rigid ureteroscope was passed transurethrally to the UPJ, the stone was visualized and had migrated to the kidney. ? The rigid ureteroscope was removed the disposable flexible ureteroscope was passed over the guide wire into the kidney the stone was visualized in the mid to lower pole.? Laser lithotripsy of the stone was done? using the laser fiber with a combination of dusting? settings 0.5 J by? 20 hertz and? 0.6 joules by 8 hertz There was good? fragmentation of the stone, the ureteroscope was removed.? The cystoscope was passed over the safety guidewire.? A? 6 Moroccan by? 24 cm stent was placed into the ureter and renal pelvis? under a combination of fluoroscopy and direct visualization. The bladder was emptied.? The rigid cystoscope was removed. ? The patient tolerated the procedure well and was? brought to? the recovery room in stable condition. Complications:?None Drains:? Ureteral stent as dictated above
== END 2023-04-30 15:30 | disposition home or self-care (01) ==
LOC: HO.SSS 08:58
PROVIDERS: Nurse Practitioner; PCP Nurse Practitioner Family; Visit Provider Urology
PROC: (CPT 52356; principal; 2023-04-30 10:40)
DX: N20.1 Calculus of ureter (principal); N13.30 Unspecified hydronephrosis; J45.909 Unspecified asthma, uncomplicated; R53.83 Other fatigue; F41.1 Generalized anxiety disorder; F41.8 Other specified anxiety disorders; Z79.899 Other long term (current) drug therapy
CPT/HCPCS: 52356; 81025; 82365; 88300; C1769; C2617; J0131; J0690; J1100; J1885; J2250; J2405; Q9967

== ENCOUNTER → 2023-04-30 08:57 | Outpatient (BNV) | payer OTHER, SELFPAY | PROVIDERS: PCP Nurse Practitioner Family; Visit Provider Urology | DX: N20.1 Calculus of ureter (principal) | CPT/HCPCS: 52356 ==

== ENCOUNTER 2023-05-27 11:30 | Outpatient (AMB) | payer OTHER, SELFPAY ==
--- NOTE | 2023-05-27 02:15 | A.OFFVIS_ITS ---
Intake Intake Visit Reasons: cysto stent removal Intake Note: Patient presents today for a CYSTOSCOPY Procedure: Meds: None Allergies to Antibiotic: No Known Allergies Blood Thinner: None Urinalysis test cleared for Cysto Disposible Uro-G Cystoscope Cannula: Lot: [id number] Exp: 02/08/2025 Director Of Strategic Initiatives Required: No Accompanied by: Self / Same As Patient Allergies SEASONAL ALLERGIES Allergy (Intermediate, Uncoded 06/23/20 16:34) SNEEZING Medication List - Last Reconciled 05/27/23 by Flip Mckoy MD clonazepam 0.5 mg PO BID PRN escitalopram oxalate 20 mg PO DAILY hydroxyzine pamoate 25 mg PO BEDTIME mirtazapine 7.5 mg PO BEDTIME ondansetron 8 mg PO Q8H oxycodone-acetaminophen 5-325 mg (Percocet) 1 tab PO Q8H PRN 3 days phenazopyridine (Pyridium) 100 mg PO Q8H tramadol 50 mg PO Q8H PRN HPI HPI Comments History of Present Illness Details Remedios is a 27-year-old female who presents today to the office for a follow up. 05/27/2023? She was last seen by me on 04/26/2023 for bilateral nephrolithiasis.? She is s/p right ureteroscopy laser lithotripsy on 04/30/23. she is here for stent removal. Review of charts: Last visit: 04/26/2023? Remedios is a 27-year-old who was initially evaluated as an inpatient for right- sided flank pain secondary to an obstructing right renal stone. She is status post right ureteral stent on 04/16/23. Results reviewed ? Discussed with the patient the CAT scan on 04/15/23 was done with contrast and noted a 4 mm obstructing stone in the proximal right ureter. Also there is a nonobstructing 4 mm stone in the left upper pole kidney. She is complaining of fatigue, She is prescribed? Vistaril and Pyridium due to LUTS secondary to ureteral stent. I will fill out a work note to reduce work day responsibilities to 5 hr work day. Evaluation today-- UA 04/26/23-- Blood: 3+ Tiburcio/uL. Leukocytes: 15 Gabrielle/uL. Plan: CAT scan results were reviewed with the patient in detail today. Right ureteroscopy, laser lithotripsy and stent exchange discussed to be scheduled. Risks discussed included but not limited to, possible need to repeat procedure if stone is not completely fragmented, Irritative voiding symptoms, bladder spasms, urgency, blood in urine. Will write a work note for accommodations due to the stent being placed and the required medication that I have prescribed Vistaril and Pyridium which both cause some drowsiness. 05/27/2023: Plan: Stent was removed today in the office without any difficulties. Renal US in 6 months. Diet sheet was provided to the patient with with recommendations to decrease risk for stone formation. 24-hour urine collection was ordered. Follow up in 3 months to review results. [facility] Medical History Anxiety Asthma Depression Kidney calculi Surgical History Status post placement of ureteral stent Family History Father No problems noted. Mother No problems noted. Social History Alcohol intake: never Patient Tobacco Use Status: Never used Tobacco Second Hand Smoke Exposure: No Substance Use Type: Marijuana Review of Systems Const All systems reviewed & are unremarkable except as noted in HPI and below Reports no additional complaints Eyes Reports no additional complaints ENT Reports no additional complaints Card Denies dyspnea Resp Denies cough and Denies dyspnea GI Reports no additional complaints Reports no additional complaints Musc Reports no additional complaints Skin/Breast Denies rash and Denies unusual bruising Neuro Reports no additional complaints Psych Reports no additional complaints Endo Reports no additional complaints Genaro/Lymph Reports no additional complaints Aller/Immun Reports no additional complaints Office Procedures Cystoscopy Consent Discussed risk and benefit or proposed procedure with the patient. Information consent for procedure given to the patient. Discussed technical aspects, risks, benefits and alternatives in full. Addressed all of the patient's questions and concerns regarding the procedure. The patient demonstrated knowledge and understanding. They wish to proceed with this procedure. Preparation The patient was prepped in the usual manner. A avionics systems repairer was present and in the room. Genitalia was prepped with betadine solution in a sterile manner. Lidocaine Jelly 2% was placed into the urethra and 16Fr flexible Olympus cystoscope was inserted into the meatus after adequate lubrication. Procedure Time out per protocol performed. Bladder Inspection Cystoscopy findings: mild edema right ureteral orifice which is expected, distal end of ureteral stent visualized. The grasping forceps were used and the stent was removed without difficulty. [id number] with stent removal DISPOSABLE SCOPE URO-G FLEXIBLE SCOPE Procedure code (CPT) selection complete Office Meds lidocaine HCl Performing Provider: Flip Mckoy MD Administered by: Una Trent RN on 05/27/23 12:02 Dose Route Admin Location Lot Number Expiration Date ND Vacuum Caster 10 mL intra-urethral naproxen Performing Provider: Flip Mckoy MD Administered by: Una Trent RN on 05/27/23 12:02 Dose Route Admin Location Lot Number Expiration Date ND Vacuum Caster 500 mg PO ciprofloxacin HCl Performing Provider: Flip Mckoy MD Administered by: Una Trent RN on 05/27/23 12:02 Dose Route Admin Location Lot Number Expiration Date NDC Vacuum Caster 500 mg PO Results AMB Urinalysis, Automated UA Leukoctes 125 Gabrielle/uL Last Edit by MICHAELA Larsen on 05/27/23 12:05 2+ Janina Sanchez 05/27/23 12:05 UA Nitrite Negative Last Edit by MICHAELA Larsen on 05/27/23 12:05 UA Urobilinogen 0.2 mg/dL Last Edit by MICHAELA Larsen on 05/27/23 12:0 5 UA Protein 100 mg/dL Last Edit by MICHAELA Larsen on 05/27/23 12:05 2+ Janina Sanchez 05/27/23 12:05 UA pH 6.0 Last Edit by MICHAELA Larsen on 05/27/23 12:05 UA Blood 200 Tiburcio/uL Last Edit by MICHAELA Larsen on 05/27/23 12:05 3+ Janina Sanchez 05/27/23 12:05 UA Specific [place] 1.025 Last Edit by MARIA DEL ROSARIO LarsenA on 05/27/23 12: 05 UA Ketone Negative Last Edit by MICHAELA Larsen on 05/27/23 12:05 UA Bilirubin 0 mg/dL Last Edit by Janina Sanchez RMA on 05/27/23 12:05 UA Glucose 0 mg/dL Last Edit by MICHAELA Larsen on 05/27/23 12:05 Results Reviewed Results Reviewed: Laboratory Last Values Urine pH (Auto) 6.0 05/27/23 12:03 Specific [place] (Auto) 1.025 05/27/23 12:03 Urine Protein (Auto) 100 mg/dL 05/27/23 12:03 Glucose (UA)(Auto) 0 mg/dL 05/27/23 12:03 Urine Ketones (Auto) Negative 05/27/23 12:03 Urine Blood (Auto) 200 Tiburcio/uL 05/27/23 12:03 Urine Nitrite (Auto) Negative 05/27/23 12:03 Urine Bilirubin (Auto) 0 mg/dL 05/27/23 12:03 Urine Urobilinogen (Auto) 0.2 mg/dL 05/27/23 12:03 Leukocyte Esterase (Auto) 125 Gabrielle/uL 05/27/23 12:03 Date of Service: 04/30/23 EXAMINATION: XR FLUOROSCOPY WITH IMAGES CLINICAL INFORMATION: Right retrograde pyelogram. ? COMPARISON: None available.? FINDINGS: There are 4 digital images revealing guidewire and disc over the right renal pelvis. The subsequent images reveal contrast opacifying the right kidney pelvis. No intraluminal filling defect, narrowing or irregularity seen involving the right renal pelvis.? IMPRESSION: Fluoroscopy guidance was provided to referring physician during right retrograde pyelogram Assessment & Plan Assessment & Plan (1) Bilateral nephrolithiasis: Code(s): N20.0 - Calculus of kidney (2) Kidney stone on left side: Code(s): N20.0 - Calculus of kidney Plan Stent was removed today in the office without any difficulties. Renal US in 6 months. 24-hour urine collection was ordered. Diet sheet was provided to the patient with with recommendations to decrease risk for stone formation. Follow up in 3 months. Orders: Orders US renal BI 6 Months N20.0 - Calculus of kidney AMB Cystoscopy Today N20.0 - Calculus of kidney AMB Urinalysis Automated Today Z13.9 - Encounter for screening, unspecified Patient Instructions: The patient had an opportunity to ask questions regarding treatment plan. All questions were answered. Imaging, Laboratory studies and physical exam results were discussed and reviewed in detail. No major barriers to understanding were identified. The patient expressed understanding and agreement with the above treatment plan.? ? ? The patient is aware they should contact our office by phone for worsening of their current condition or the appearance of new symptoms. Compliance is encouraged with any medications and followup testing that is ordered.? ? ? It is a privilege to be allowed the opportunity to participate in the urologic care of your patient. If you have any questions or concerns regarding treatment for the above conditions please do not hesitate to contact me. The office telephone contact is [phone].? ? ? This note is constructed in part using voice recognition software. While every effort has been made to ensure accuracy crew boss errors may have been included.? ? ? Yours sincerely,? ? ? Flip Mckoy MD? ? Coding Level of Care Code Procedure Only Diagnoses Bilateral nephrolithiasis N20.0 Kidney stone on left side N20.0 CPT Codes Cystoscopy - CPT: 66700-[id number] with stent removal ([id number]) Cystoscopy - CPT: DISPOSABLE SCOPE URO-G FLEXIBLE SCOPE ([id number])
== END 2023-05-27 13:36 | disposition home or self-care (01) ==
PROVIDERS: PCP Nurse Practitioner Family; Visit Provider Urology
DX: N20.0 Calculus of kidney (principal); Z13.9 Encounter for screening, unspecified
CPT/HCPCS: 52310

== ENCOUNTER → 2023-05-27 11:30 | Outpatient (BNVA) | payer OTHER, SELFPAY | PROVIDERS: PCP Nurse Practitioner Family; Visit Provider Urology | DX: Z48.816 Encounter for surgical aftercare following surgery on the genitourinary system (principal) | CPT/HCPCS: 52310; 81003; C1747 ==

== ENCOUNTER 2024-06-25 15:39 | Emergency (ER) | payer OTHER, SELFPAY ==
--- NOTE | ~2024-06-25 | CT_ITS ---
EXAMINATION: CT ABDOMEN AND PELVIS WITHOUT CONTRAST CLINICAL INFORMATION: Right pelvic pain and hematuria COMPARISON: CT and pelvis 04/15/2023 TECHNIQUE: Multidetector volumetric imaging was performed from the superior aspect of the liver through the pubic symphysis. Sagittal and coronal reformatted images were obtained on the technologist's workstation. This CT examination was performed using dose optimization techniques as appropriate, variously including the following: *Automated exposure control *Adjustment of mA and/or kV according to patient size (this includes techniques or standardized protocols for targeted exams where dose is matched to indication/reason for exam; i.e. extremities or head) *Use of iterative reconstruction technique DLP: 248 mGy-cm FINDINGS: LUNG BASES: The visualized lung bases are unremarkable. LIVER, GALLBLADDER, AND BILIARY TREE: The liver is normal in size, shape, and attenuation. No focal hepatic lesion or biliary ductal dilatation is present. The gallbladder is unremarkable with no evidence of radiopaque gallstones, gallbladder wall thickening, or obvious pericholecystic inflammatory changes. PANCREAS: Unremarkable. SPLEEN: Unremarkable. ADRENAL GLANDS: Unremarkable. KIDNEYS AND URETERS: The kidneys are normal in size, shape, and attenuation. A 3 mm radiopaque calculi mid pole left kidney and obstructive 6 mm calculi at left UPJ with mild hydronephrosis. No radiopaque calculi seen in the right kidney. There is no hydronephrosis. BLADDER: Unremarkable. GASTROINTESTINAL TRACT: There is scattered stool and gas seen throughout the colon without any significant distention. The small bowel loops are normal caliber. Appendix is not visualized. ABDOMINAL WALL: No significant hernia is appreciated. LYMPH NODES: Normal. VASCULAR: Unremarkable. PELVIC VISCERA: Unremarkable. OSSEOUS STRUCTURES: No aggressive lytic or sclerotic process seen CT/CT abdomen pelvis wo IV con IMPRESSION: 1. Obstructive 6 mm calculi left UPJ with mild hydronephrosis. 2. Nonobstructive radiopaque calculi mid pole left kidney. 3. Mild constipation. Fleischner guidelines were followed. Electronically signed by: Kenneth Richardson MD 06/25/2024 09:50 PM EDT
[2024-06-25 15:43] VITALS: BP 142/72; PULSE 92; RESP 16; TEMP 36.6; O2SAT 99; BMI 23.0
--- NOTE | 2024-06-25 15:43 | ED.ABDPAIN ---
HPI - Abdominal Pain General Chief Complaint: Urogenital-Female Stated Complaint: abd pain Time Seen by Provider: 06/25/24 21:37 Source: patient Mode of arrival: ambulatory Limitations: no limitations History of Present Illness ED Provider: john DRISCOLL narrative: Patient's history of kidney stone and ovarian cyst in the past complaining of pain in the right lower abdomen only for last 4 days getting better now no nausea no vomiting appetite good had gross hematuria which urinated earlier, feels hungry no vaginal discharge Related Data Home Medications ?Medication ?Instructions ?Recorded ?Confirmed clonazepam 0.5 mg tablet 0.5 mg PO BID PRN anxiety 04/16/23 05/27/23 escitalopram oxalate 20 mg tablet 20 mg PO DAILY 04/16/23 05/27/23 mirtazapine 7.5 mg tablet 7.5 mg PO BEDTIME 04/16/23 05/27/23 Previous Rx's ?Medication ?Instructions ?Recorded ondansetron 8 mg disintegrating 8 mg PO Q8H nausea #24 tabs 04/16/23 tablet oxycodone-acetaminophen 5 mg-325 1 tab PO Q8H PRN pain 3 days #9 04/16/23 mg tablet (Percocet) tabs phenazopyridine 100 mg tablet 100 mg PO Q8H #30 tabs 04/16/23 (Pyridium) tramadol 50 mg tablet 50 mg PO Q8H PRN pain #8 tabs 04/30/23 hydroxyzine pamoate 25 mg capsule 25 mg PO BEDTIME #30 caps 05/13/23 ibuprofen 600 mg tablet 600 mg PO Q6H PRN fever or pain 06/25/24 #30 tabs tamsulosin 0.4 mg capsule (Flomax) 0.4 mg PO BEDTIME #14 caps 06/25/24 Allergies Allergy/AdvReac Type Severity Reaction Status Date / Time SEASONAL ALLERGIES Allergy Intermediate SNEEZING Uncoded 06/25/24 15:47 Review of Systems Review of Systems Yes all other systems are reviewed and are negative PMFSH Past Medical History Medical History Kidney calculi Depression Anxiety Asthma Surgical History Status post placement of ureteral stent Family History Family History Father No problems noted. Mother No problems noted. Social History Social History Alcohol intake: never Patient Tobacco Use Status: Never used Tobacco Second Hand Smoke Exposure: No Use of substances other than those prescribed or required for medical reasons: No Substance Use Type: Marijuana Advance Directives: No Advance Directives Information Provided: No Do you have a plan to hurt others: No Plan Patient : No Physical Exam ED Vital Signs: Vital Signs - 24 hr 06/25/24 15:43 06/25/24 20:35 06/25/24 22:44 Temperature 97.9 F 98.1 F 98.7 F Pulse Rate 92 73 70 Respiratory Rate 16 16 18 Blood Pressure 142/72 H 110/54 L 100/61 Pulse Oximetry 99 100 100 Oxygen Delivery Method Room Air Room Air Room Air BMI result Body Mass Index 23.0 Appearance: Alert. Oriented X3. No acute distress. Eyes: No pallor or icterus ENT: Pharynx normal. Oral Mucosa moist Neck: Normal inspection. Neck supple. CVS: Normal heart rate and rhythm. Pulses normal. Respiratory: No respiratory distress. Equal air entry bilateral, Abdomen: Soft and mild deep tenderness right pelvic area Bowel sounds are present, no mass palpable, no CVA tenderness Skin: Skin warm and dry. Normal skin color. Normal skin turgor. Extremities: No lower extremity edema. No calf tenderness Neuro: Oriented X 3. No motor deficit. Course Course Course Narrative: This is a Rapid Medical Examination (RME) performed by Meghan Kowalski PA-C in triage. Full HPI, ROS, assessment and treatment plan per primary provider in the Main ED. 28 yo female with history of kidney stones in the past presents to the ER for evaluation of right lower abdominal/pelvic pain that started 4 days ago and hematuria that started yesterday along w/ increased urinary frequency. LMP 2 weeks ago. pain is improved. pain is not similar to that of kidney stones, no back pain. Plan: labs and UA, imaging per primary provider Medical Decision Making Medical Decision Making MDM Narrative: Patient's right-sided pain likely had a ovarian cyst which ruptured CT scan is negative for appendicitis also showed 6 mm left proximal ureteric stone the patient is without any pain at this time advised to follow with urologist will give Flomax and ibuprofen Differential Diagnosis Differential Diagnoses: The differential diagnosis associated with the presentation includes Kidney stone/appendicitis/ovarian cyst Lab Data MDM Lab Attestation statement: I reviewed the patient's lab results. 06/25/24 16:03 06/25/24 16:03 Labs: Lab Results 06/25/24 06/25/24 Range/Units 16:03 17:27 WBC 6.9 (4.8-10.8) X10*3/uL RBC 3.90 L (4.20-5.50) X10*6/uL Hgb 12.2 (12.0-16.0) g/dl Hct 36.6 L (37.0-47.0) % MCV 93.8 (80.0-98.0) fL MCH 31.3 (27.0-33.0) pg MCHC 33.3 (31.0-35.0) g/dl RDW 11.9 (11.0-16.0) % Plt Count 212 (160-400) X10*3/uL MPV 10.6 (9.4-12.3) fL Immature Gran % (Auto) 0.3 (0.0-0.4) % Neut % (Auto) 59.0 (45-73) % Lymph % (Auto) 30.4 (20-40) % Mccracken % (Auto) 9.0 (2-11) % Eos % (Auto) 0.9 (0-4) % Baso % (Auto) 0.4 (0-2) % Lymph # (Auto) 2.1 (1.2-4.9) X10*3/uL M[place]racken # (Auto) 0.6 (0.1-1.2) X10*3/uL Eos # (Auto) 0.1 (0.0-0.4) X10*3/uL Baso # (Auto) 0.0 (0.0-0.2) X10*3/uL Abs Immat Gran (auto) 0.02 (0.00-0.03) X10*3/uL Absolute Neuts (auto) 4.1 (2.0-8.3) x10*3/uL Absolute Nucleated RBC 0.000 (0.0-0.012) X10*3/uL Nucleated RBC % (auto) 0.0 (0.0-0.2) /100WBC Sodium 139 (135-145) mmol/L Potassium 4.1 (3.3-5.1) mmol/L Chloride 107 (96-108) mmol/L Carbon Dioxide 25 (22-29) mmol/L Anion Gap 11 L (12-20) BUN 12 (9-16) mg/dL Creatinine 0.71 (0.5-1.4) mg/dL Estim Creat Clear Calc 98.4 Estimated GFR > 60 Random Glucose 90 (60-115) mg/dL Calcium 10.9 H D (8.4-10.2) mg/dL Magnesium 1.9 (1.6-2.6) mg/dL Total Bilirubin 0.5 (0.0-1.0) mg/dL Direct Bilirubin 0.2 (0.0-0.5) mg/dL AST 15 (5-31) U/L ALT 10 (0-31) U/L Alkaline Phosphatase 42 (39-117) U/L Total Protein 7.8 (6.5-8.0) g/dL Albumin 5.1 H (3.5-5.0) g/dL Urine Color Yellow Urine Appearance Clear Urine pH 6.0 (5.0-9.0) Ur Specific [place] 1.010 (1.005-1.025) Urine Protein Negative (Neg-Trace) mg/dL Urine Glucose (UA) Negative (Negative) mg/dL Urine Ketones Trace (Negative) mg/dL Urine Blood Large (3+) H (Negative) Urine Nitrite Negative (Negative) Ur Leukocyte Esterase Trace H (Negative) Urine RBC >20 H (0-2) /HPF Urine WBC 0-5 (0-5) /HPF Ur Squamous Epith Cells 0-2 (0-2) /HPF Urine Bacteria Trace (None Seen) Hyaline Casts 0-2 (0-2) /LPF Urine Test NEGATIVE (NEGATIVE) Radiology Impression Discussion of test interpretation with radiology: I have reviewed the radiologist's reading. Radiologist Impression: CT/CT abdomen pelvis wo IV con IMPRESSION: 1. Obstructive 6 mm calculi left UPJ with mild hydronephrosis. 2. Nonobstructive radiopaque calculi mid pole left kidney. 3. Mild constipation. Fleischner guidelines were followed. Electronically signed by: Kenneth Debra MD 06/25/2024 09:50 PM EDT RP Medications Administered Discontinued Medications Generic Name Dose Route Start Last Admin Trade Name Freq PRN Reason Stop Dose Admin Ibuprofen 600 mg 06/25/24 21:51 06/25/24 22:01 Ibuprofen 600 Mg Tablet PO 06/25/24 21:52 600 mg ONCE ONE Administration Tamsulosin HCl 0.4 mg 06/25/24 22:13 06/25/24 22:29 Tamsulosin Hcl 0.4 Mg Capsule PO 06/25/24 22:14 0.4 mg ONCE ONE Administration Discharge Plan Discharge Clinical Impression: Kidney stone on left side Patient Disposition: Home, Self-Care Instructions: Kidney Stones (ED) Additional Instructions: Drink plenty of fluids Ibuprofen for pain Flomax daily till you pass the stone Report to ER if worsening of the left-sided pain See urologist next few days for further management Prescriptions: New tamsulosin [Flomax] 0.4 mg capsule 0.4 mg PO BEDTIME Qty: 14 0RF ibuprofen 600 mg tablet 600 mg PO Q6H PRN (Reason: fever or pain) Qty: 30 0RF No Action hydroxyzine pamoate 25 mg capsule 25 mg PO BEDTIME Qty: 30 3RF tramadol 50 mg tablet 50 mg PO Q8H PRN (Reason: pain) Qty: 8 0RF clonazepam 0.5 mg tablet 0.5 mg PO BID PRN (Reason: anxiety) escitalopram oxalate 20 mg tablet 20 mg PO DAILY mirtazapine 7.5 mg tablet 7.5 mg PO BEDTIME ondansetron 8 mg tablet,disintegrating 8 mg PO Q8H Qty: 24 0RF phenazopyridine [Pyridium] 100 mg tablet 100 mg PO Q8H Qty: 30 0RF Rx Instructions: take with food oxycodone-acetaminophen [Percocet] 5-325 mg tablet 1 tab PO Q8H PRN (Reason: pain) 3 Days Qty: 9 0RF Rx Instructions: Partial Fill upon patient request. Referrals: Flip Mckoy MD [Physician] - 2 days Interventions: ED Discharge Assessment Last Done: 06/25/24 22:44 Discharge Date/Time: 06/25/24 22:45 Print Language: Latvian
[2024-06-25 16:08] LABS: MANUAL DIFF FLAG NO
[2024-06-25 16:10] LABS: Basophils Percent Auto 0.4 % (0-2); Eosinophils Absolute Auto 0.1 X10*3/uL (0.0-0.4); Eosinophils Percent Auto 0.9 % (0-4); Hematocrit 36.6 % (37.0-47.0); Hemoglobin 12.2 g/dl (12.0-16.0); Imm Gran Abs Auto 0.02 X10*3/uL (0.00-0.03); Imm Gran Pct Auto 0.3 % (0.0-0.4); Lymphocytes Absolute Auto 2.1 X10*3/uL (1.2-4.9); Lymphocytes Percent Auto 30.4 % (20-40); Mean Corpuscular HGB Conc 33.3 g/dl (31.0-35.0); Mean Corpuscular Hemoglobin 31.3 pg (27.0-33.0); Mean Corpuscular Volume 93.8 fL (80.0-98.0); Mean Platelet Volume 10.6 fL (9.4-12.3); Monocytes Absolute Auto 0.6 X10*3/uL (0.1-1.2); Neutrophils Absolute Auto 4.1 x10*3/uL (2.0-8.3); Platelet Count 212 X10*3/uL (160-400); Red Cell Distribution Width 11.9 % (11.0-16.0); White Blood Count 6.9 X10*3/uL (4.8-10.8)
[2024-06-25 16:23] LABS: Alanine Aminotransferase 10 U/L (0-31); Albumin Level 5.1 g/dL (3.5-5.0); Alkaline Phosphatase 42 U/L (39-117); Anion Gap 11 (12-20); Aspartate Amino Transferase 15 U/L (5-31); Bilirubin Direct 0.2 mg/dL (0.0-0.5); Bilirubin Total 0.5 mg/dL (0.0-1.0); Blood Urea Nitrogen 12 mg/dL (9-16); Calcium 10.9 mg/dL (8.4-10.2); Carbon Dioxide 25 mmol/L (22-29); Chloride 107 mmol/L (96-108); Creatinine Clr Calc Pharmacy 98.4; Estimated Glomerular Filt Rate > 60; Glucose Random 90 mg/dL (60-115); Magnesium 1.9 mg/dL (1.6-2.6); Potassium 4.1 mmol/L (3.3-5.1); Sodium 139 mmol/L (135-145); Total Protein 7.8 g/dL (6.5-8.0)
[2024-06-25 17:38] LABS: Appearance Urine Clear; Color Urine Yellow; Glucose Urine UA Negative (Negative); Leukocyte Esterase Urine Trace (Negative); Nitrite Urine Negative (Negative); UMIC TRIGGER UACC YES; Urine Blood Large (3+) (Negative); Urine Ketones Trace mg/dL (Negative); Urine Protein Negative (Neg-Trace)
[2024-06-25 17:42] LABS: UPreg QC Valid YES; Urine Pregnancy NEGATIVE (NEGATIVE)
[2024-06-25 18:31] LABS: Bacteria Urine Trace (None Seen); Hyaline Casts Urine 0-2 /LPF (0-2); RBC Urine >20 /HPF (0-2); Squamous Epithelial Cell Urine 0-2 /HPF (0-2); WBC Urine 0-5 /HPF (0-5)
--- NOTE | 2024-06-25 20:27 | PC.NURSE ---
pt from the lobby, assume care of pt at this time
[2024-06-25 20:35] VITALS: BP 110/54; PULSE 73; RESP 16; TEMP 36.7; O2SAT 100
[2024-06-25] MEDS: Ibuprofen 600 MG TABLET PO (22:01)
[2024-06-25] MEDS: Tamsulosin HCL 0.4 MG CAPSULE PO (22:29)
[2024-06-25 22:44] VITALS: BP 100/61; PULSE 70; RESP 18; TEMP 37.1; O2SAT 100
== END 2024-06-25 22:45 | disposition home or self-care (01) ==
PROVIDERS: Physician Assistant; Emergency Provider Internal Medicine; PCP Nurse Practitioner Family
DX: N13.2 Hydronephrosis with renal and ureteral calculous obstruction (principal)
CPT/HCPCS: 36415; 74176; 80048; 80076; 81001; 81025; 83735; 85025; 99284

== ENCOUNTER 2024-06-26 14:36 | Outpatient (AMB) | payer OTHER, SELFPAY ==
--- NOTE | 2024-06-26 14:41 | A.OFFVIS_ITS ---
Intake Visit Reasons: ER follow up Intake Note: Patient is present for ER F/U Urology Medication: Antibiotic Allergy: Blood Thinner: Allergies SEASONAL ALLERGIES Allergy (Intermediate, Uncoded 06/26/24 14:47) SNEEZING Medication List - Last Reconciled 06/26/24 by Flip Mckoy MD clonazepam 0.5 mg PO BID PRN escitalopram oxalate 20 mg PO DAILY hydroxyzine pamoate 25 mg PO BEDTIME ibuprofen 600 mg PO Q6H PRN mirtazapine 7.5 mg PO BEDTIME ondansetron 8 mg PO Q8H oxycodone-acetaminophen 5-325 mg (Percocet) 1 tab PO Q8H PRN 3 days phenazopyridine (Pyridium) 100 mg PO Q8H tamsulosin (Flomax) 0.4 mg PO BEDTIME tramadol 50 mg PO Q8H PRN HPI Comments Details: 06/26/24--Remedios was in the emergency room yesterday with left flank pain. She was sent home with Flomax and ibuprofen. Currently she is asymptomatic. I have reviewed CT scan-06/25/24 results with her, a 6 mm proximal ureteral stone with hydronephrosis and a 3 mm left renal stone, right kidney no stones visualized. The patient was treated last year for a right ureteral stone, at that time discussed further evaluation with 24 hour urine, she did not come for follow-up. Treatment plan discussed left ureteroscopy laser lithotripsy with stent placement. I want her to continue with the tamsulosin I have sent a script for oxycodone and Zofran. Review of chart: 05/27/2023?Remedios is a 27-year-old female who presents today to the office for a follow up. She was last seen by me on 04/26/2023 for bilateral nephrolithiasis.?She is s/p right ureteroscopy laser lithotripsy on 04/30/23. She is here for stent removal. 04/26/2023?Remedios is a 27-year-old who was initially evaluated as an inpatient for right-sided flank pain secondary to an obstructing right renal stone. She is status post right ureteral stent on 04/16/23. Results reviewed ? Discussed with the patient the CAT scan on 04/15/23 was done with contrast and noted a 4 mm obstructing stone in the proximal right ureter. Also there is a nonobstructing 4 mm stone in the left upper pole kidney. She is complaining of fatigue, She is prescribed? Vistaril and Pyridium due to LUTS secondary to ureteral stent. I will fill out a work note to reduce work day responsibilities to 5 hr work day. Evaluation today-- UA 04/26/23-- Blood: 3+ Tiburcio/uL. Leukocytes: 15 Gabrielle/uL. Plan: CAT scan results were reviewed with the patient in detail today. Right ureteroscopy, laser lithotripsy and stent exchange discussed to be scheduled. Risks discussed included but not limited to, possible need to repeat procedure if stone is not completely fragmented, Irritative voiding symptoms, bladder spasms, urgency, blood in urine. Will write a work note for accommodations due to the stent being placed and the required medication that I have prescribed Vistaril and Pyridium which both cause some drowsiness. PFSH Medical History Kidney calculi Depression Anxiety Asthma Surgical History Status post placement of ureteral stent Family History Father No problems noted. Mother No problems noted. Social History Alcohol intake: never Patient Tobacco Use Status: Never used Tobacco Second Hand Smoke Exposure: No Substance Use Type: Marijuana Review of Systems Const All systems reviewed & are unremarkable except as noted in HPI and below Reports no additional complaints Eyes Reports no additional complaints ENT Reports no additional complaints Card Reports no additional complaints Resp Reports no additional complaints GI Reports no additional complaints Reports as per HPI Musc Reports no additional complaints Skin/Breast Reports system reviewed and no additional complaints, except as documented Neuro Reports no additional complaints Psych Reports no additional complaints Endo Reports no additional complaints Genaro/Lymph Reports no additional complaints Aller/Immun Reports no additional complaints Results AMB Urinalysis, Automated UA Leukoctes 125 Gabrielle/uL Last Edit by LOUISE Ma on 06/26/24 15:13 UA Nitrite Negative Last Edit by LOUISE Ma on 06/26/24 15:13 UA Urobilinogen 1 mg/dL Last Edit by LOUISE Ma on 06/26/24 15:13 UA Protein 30 mg/dL Last Edit by Anna Daniels [facility] on 06/26/24 15:13 UA pH 9.0 Last Edit by Anna Daniels [facility] on 06/26/24 15:13 UA Blood 200 Tiburcio/uL Last Edit by Anna Daniels [facility] on 06/26/24 15:13 UA Specific [place] 1.015 Last Edit by Anna Daniels [facility] on 06/26/24 15: 13 UA Ketone Positive Last Edit by Anna Daniels [facility] on 06/26/24 15:13 UA Bilirubin 1 mg/dL Last Edit by Anna Daniels [facility] on 06/26/24 15:13 UA Glucose 0 mg/dL Last Edit by Anna Daniels [facility] on 06/26/24 15:13 Results Reviewed Results Reviewed: Laboratory Last Values Urine pH (Auto) 9.0 06/26/24 15:12 Specific [place] (Auto) 1.015 06/26/24 15:12 Urine Protein (Auto) 30 mg/dL 06/26/24 15:12 Glucose (UA)(Auto) 0 mg/dL 06/26/24 15:12 Urine Ketones (Auto) Positive 06/26/24 15:12 Urine Blood (Auto) 200 Tiburcio/uL 06/26/24 15:12 Urine Nitrite (Auto) Negative 06/26/24 15:12 Urine Bilirubin (Auto) 1 mg/dL 06/26/24 15:12 Urine Urobilinogen (Auto) 1 mg/dL 06/26/24 15:12 Leukocyte Esterase (Auto) 125 Gabrielle/uL 06/26/24 15:12 Date of Service: 06/25/24 CT ABDOMEN AND PELVIS WITHOUT CONTRAST CLINICAL INFORMATION: Right pelvic pain and hematuria COMPARISON: CT and pelvis 04/15/2023 TECHNIQUE: Multidetector volumetric imaging was performed from the superior aspect of the liver through the pubic symphysis. Sagittal and coronal reformatted images were obtained on the technologist's workstation. This CT examination was performed using dose optimization techniques as appropriate, variously including the following: *Automated exposure control *Adjustment of mA and/or kV according to patient size (this includes techniques or standardized protocols for targeted exams where dose is matched to indication/reason for exam; i.e. extremities or head) *Use of iterative reconstruction technique DLP: 248 mGy-cm FINDINGS: LUNG BASES: The visualized lung bases are unremarkable. LIVER, GALLBLADDER, AND BILIARY TREE: The liver is normal in size, shape, and attenuation. No focal hepatic lesion or biliary ductal dilatation is present. The gallbladder is unremarkable with no evidence of radiopaque gallstones, gallbladder wall thickening, or obvious pericholecystic inflammatory changes. PANCREAS: Unremarkable. SPLEEN: Unremarkable. ADRENAL GLANDS: Unremarkable. KIDNEYS AND URETERS: The kidneys are normal in size, shape, and attenuation. A 3 mm radiopaque calculi mid pole left kidney and obstructive 6 mm calculi at left UPJ with mild hydronephrosis. No radiopaque calculi seen in the right kidney. There is no hydronephrosis. BLADDER: Unremarkable. GASTROINTESTINAL TRACT: There is scattered stool and gas seen throughout the colon without any significant distention. The small bowel loops are normal caliber. Appendix is not visualized. ABDOMINAL WALL: No significant hernia is appreciated. LYMPH NODES: Normal. VASCULAR: Unremarkable. PELVIC VISCERA: Unremarkable. OSSEOUS STRUCTURES: No aggressive lytic or sclerotic process seen IMPRESSION: 1. Obstructive 6 mm calculi left UPJ with mild hydronephrosis. 2. Nonobstructive radiopaque calculi mid pole left kidney. 3. Mild constipation. Assessment & Plan Assessment & Plan (1) Kidney stone on left side: Code(s): N20.0 - Calculus of kidney Category: Medical (2) Ureterolithiasis: Code(s): N20.1 - Calculus of ureter Category: Medical (3) Hydronephrosis, left: Code(s): N13.30 - Unspecified hydronephrosis Category: Medical Plan Schedule left ureteroscopy laser lithotripsy, left ureteral stent. Orders: Orders AMB Urinalysis Automated 06/26/24 Z13.9 - Encounter for screening, unspecified Medications: New oxycodone Partial Fill upon patient request. 5 mg PO Q6-8H PRN 8 tabs 0RF pain Refilled ondansetron 8 mg PO Q8H 24 tabs 0RF nausea Patient Instructions: The patient had an opportunity to ask questions regarding treatment plan. The patient expressed understanding and agreement with the above treatment plan. The patient is aware they should contact our office by phone for worsening of their current condition or the appearance of new symptoms. Compliance is encouraged with any medications and followup testing that is ordered. It is a privilege to be allowed the opportunity to participate in the urologic care of your patient. If you have any questions or concerns regarding treatment for the above conditions please do not hesitate to contact me. The office telephone contact is [phone]. This note is constructed in part using voice recognition software. While every effort has been made to ensure accuracy batch and furnace operator errors may have been included. Yours sincerely, Flip Mckoy MD Coding Level of Care Code Est Pt Level 4 (49046) Diagnoses Kidney stone on left side N20.0 Ureterolithiasis N20.1 Hydronephrosis, left N13.30
== END 2024-06-26 15:50 | disposition home or self-care (01) ==
PROVIDERS: PCP Nurse Practitioner Family; Visit Provider Urology
DX: N20.0 Calculus of kidney (principal); N20.1 Calculus of ureter; N13.30 Unspecified hydronephrosis
CPT/HCPCS: 99214

== ENCOUNTER → 2024-06-26 14:36 | Outpatient (BNVA) | payer OTHER, SELFPAY | PROVIDERS: PCP Nurse Practitioner Family; Visit Provider Urology | DX: N13.2 Hydronephrosis with renal and ureteral calculous obstruction (principal) | CPT/HCPCS: 81003 ==

== ENCOUNTER 2024-07-07 11:33 | Day surgery (SDC) | payer OTHER, SELFPAY ==
--- NOTE | 2024-07-06 10:41 | HO.ANESPROP2 ---
Documented by User: Cherise Bolivar NP 07/06/24 10:42 HPI - Anesthesia Eval Consult details Narrative: 28yo F for Left Cystoscopy, Ureteroroscopy, Retro, Laser with stent placement PMFSH Active Problems Active Problems: All Active Problems Hydronephrosis, left (Acute) Kidney stone on left side (Acute) Medication side effects (Acute) Fatigue (Acute) Hydronephrosis, right (Acute) Right ureteral stone (Acute) Bilateral nephrolithiasis (Acute) Ureterolithiasis (Acute) Past Medical History Medical History Kidney calculi Depression Anxiety Asthma Family History Family History Father No problems noted. Mother No problems noted. Family history of problems with anesthesia: No Surgical History Surgical History Status post placement of ureteral stent History of Problems with Anesthesia: No Social History Social History Household Members Other:: lives with friend too Are you a primary body care manager to a significant other at home: No Do you presently have visiting nurse or other home services: No Alcohol intake: current Alcohol intake frequency: a few times a month Patient Tobacco Use Status: Never used Tobacco Second Hand Smoke Exposure: No Substance Use Type: Marijuana Meds Allergies Allergy/AdvReac Type Severity Reaction Status Date / Time SEASONAL ALLERGIES AdvReac Intermediate SNEEZING Uncoded 07/08/24 04:48 Home Medications ?Medication ?Instructions ?Recorded ?Confirmed ?Last Taken ?Type clonazepam 0.5 mg tablet 0.5 mg PO BID PRN anxiety 04/16/23 07/07/24 07/07/24 History escitalopram oxalate 20 mg tablet 20 mg PO DAILY 04/16/23 07/07/24 04/15/23 History mirtazapine 7.5 mg tablet 7.5 mg PO BEDTIME 04/16/23 07/07/24 04/14/23 History Assessment and Plan Assessment Anesthesia Assessment: Chart Reviewed Final Anesthetic Review Family History of Problems with Anesthesia: No History of Problems with Anesthesia: No Documented by User: Darian Sloan MD 07/14/24 10:19 [facility] Past Medical History Medical History Kidney calculi Depression Anxiety Asthma Patient : No Family History Family History Father No problems noted. Mother No problems noted. Surgical History Surgical History Status post placement of ureteral stent Social History Social History Household Members Other:: lives with friend too Are you a primary body care manager to a significant other at home: No Do you presently have visiting nurse or other home services: No Alcohol intake: current Alcohol intake frequency: a few times a month Patient Tobacco Use Status: Never used Tobacco Second Hand Smoke Exposure: No Substance Use Type: Marijuana Meds Allergies Allergy/AdvReac Type Severity Reaction Status Date / Time SEASONAL ALLERGIES AdvReac Intermediate SNEEZING Uncoded 07/08/24 04:48 Home Medications ?Medication ?Instructions ?Recorded ?Confirmed ?Last Taken ?Type clonazepam 0.5 mg tablet 0.5 mg PO BID PRN anxiety 04/16/23 07/07/24 07/07/24 History escitalopram oxalate 20 mg tablet 20 mg PO DAILY 04/16/23 07/07/24 04/15/23 History mirtazapine 7.5 mg tablet 7.5 mg PO BEDTIME 04/16/23 07/07/24 04/14/23 History Exam Airway Mallampati Class: II TM Dist: >3cm Neck ROM: Full Heart: ok Lungs: ok Assessment and Plan Assessment Anesthesia Assessment: Anesthesia Plan Discussed Final Anesthetic Review NPO: Yes ASA Class: II Final Preanesthetic Review: No Changes in Pt Med Stat, Meds/Allgs Chart Reviewed, Consent Obtained/Reviewed and Anes Risks/Benef Reviewed Patient Risk: Low Procedure Risk: Low Anesthetic Plan Anesthetic Plan: GA and Agree w/ Assess. and Plan Disposition: Standard PACU
[2024-07-07] VITALS (9 sets, daily range): BP systolic 93–140; BP diastolic 57–96; PULSE 62–92; RESP 16–18; TEMP 36.6–36.7; O2SAT 96–100; BMI 18.9
[2024-07-07 11:58] LABS: UPreg QC Valid YES; Urine Pregnancy NEGATIVE (NEGATIVE)
[2024-07-07] MEDS: Lactated Ringers 1,000 ML 100 ML IVCONT (12:08)
--- NOTE | 2024-07-07 12:21 | MHC.SHP ---
Pre-Procedural Eval Section A - 24 Hr Update-Section A only Date of Service: 07/07/24 The patient is an INPATIENT: No The patient has been examined within 24 hours of the surgical procedure. The History & Physical has been completed within 30 days and I have reviewed it.: Yes Section B - Complete if H&P > 30 days Chief Complaint: Calculus of ureter Allergies: Allergies Allergy/AdvReac Type Severity Reaction Status Date / Time SEASONAL ALLERGIES Allergy Intermediate SNEEZING Uncoded 07/07/24 11:56 Plan Diagnosis/Plan: Unchanged I have reviewed the history and physical and performed a pertinent physical examination on my patient. No changes have occurred unless specified. Plan for Cystoscopy, Left ureteroscopy, possible laser lithotripsy, possible ureteral stent. Risks discussed included but not limited to, possible need to repeat procedure if stone is not completely fragmented, Irritative voiding symptoms, bladder spasms, urgency, blood in urine. Time Spent With Patient Time: Total time managing care of this patient today ____ minutes.
--- NOTE | 2024-07-07 13:41 | W.PM.OPN ---
Operative Note Operative Note Date of Service: 07/07/24 Narrative: PreOperative Diagnosis:?? left proximal ureteral stone, hydronephrosis Post Operative Diagnosis:??left proximal ureteral stone, hydronephrosis Procedure: - Cystoscopy, left retrograde, left ureteroscopy stent insertion, 6 Persian by 24 cm Surgeon:?Dr Flip Mckoy Anesthesia:? General Indications for procedure: left hydronephrosis Procedure: After informed consent was verified the patient was brought to the operating placed on the OR table in supine position.? General Anesthesia was administered per protocol.? The patient was placed in lithotomy position, prepped and draped in the usual sterile fashion.? Safety pause time-out and side of surgery confirmed.? Antibiotics confirmed. 2% lidocaine jelly 10 mL was passed transurethrally. A 22 Persian cystoscope was inserted transurethrally, the bladder was visualized.? Both ureteric orifices were in normal position. An open-ended ureteral catheter was passed into the left ureteral orifice and a retrograde examination was performed. There was a filling defect in the proximal ureter and dilatation of the renal pelvis and calyces. A guidewire was passed through the ureteral catheter into the kidney. The balloon dilator size 12 fr x 4 cm was passed over the guide-wire the balloon was inflated to 10 mmHg and the intramural ureter was dilated for 45 seconds. The balloon was deflated and removed. After removing the balloon dilator a 2nd guidewire was then passed into the kidney to use as a safety. The cystoscope was removed, leaving both guidewires in place. One guidewire was used as the safety and was attached to the draping. The semi rigid ureteroscope was passed over one of the guidewires to the proximal ureter. There was narrowing and edema proximally, the stone was not visualized, it was decided to place a stent due to findings in the ureter and further stone management to be reviewed at a separate procedure. The ureteroscope was removed. The cystoscope was passed over the safety guidewire. A? 6 Persian by 24 cm stent was placed into the ureter and renal pelvis under a combination of fluoroscopy and direct visualization. The bladder was emptied.? The rigid cystoscope was removed. ? The patient tolerated the procedure well and was brought to the recovery room in stable condition. Complications: None Drains: Ureteral stent as dictated above
[2024-07-07] MEDS: ondansetron HCL 4 MG/2 ML VIAL IVPUSH (13:57)
[2024-07-07] MEDS: fentaNYL citrate/PF 100 MCG/2 ML VIAL 50 MCG IVPUSH ×2 (13:58→14:13)
[2024-07-07] MEDS: LORazepam 2 MG/ML VIAL 1 MG IVPUSH (14:06)
[2024-07-07] MEDS: Phenazopyridine HCL 200 MG TABLET PO (14:22)
[2024-07-07] MEDS: oxyCODONE HCl Immed Release 5 MG TABLET PO (14:22)
[2024-07-07] MEDS: Acetaminophen 325 MG TABLET 650 MG PO (14:23)
== END 2024-07-07 15:19 | disposition home or self-care (01) ==
PROVIDERS: Nurse Practitioner; PCP Nurse Practitioner Family; Visit Provider Urology
PROC: (CPT 52351; principal; 2024-07-07 13:30)
DX: N20.1 Calculus of ureter (principal); N13.30 Unspecified hydronephrosis; Z87.442 Personal history of urinary calculi; J45.909 Unspecified asthma, uncomplicated; F32.A Depression, unspecified; F41.9 Anxiety disorder, unspecified; Z79.1 Long term (current) use of non-steroidal anti-inflammatories (NSAID); Z79.899 Other long term (current) drug therapy
CPT/HCPCS: 52351; 52332; 81025; 87086; C1726; C1758; C1769; C2617; J0690; J1885; J2060; J2250; J2405; J2704; J3010; Q9967

== ENCOUNTER → 2024-07-07 11:33 | Outpatient (BNV) | payer OTHER, SELFPAY | PROVIDERS: PCP Nurse Practitioner Family; Visit Provider Urology | DX: N20.1 Calculus of ureter (principal); N13.30 Unspecified hydronephrosis | CPT/HCPCS: 52332; 74420 ==

== ENCOUNTER 2024-07-08 04:38 | Emergency (ER) | payer OTHER, SELFPAY ==
--- NOTE | ~2024-07-08 | CT_ITS ---
EXAMINATION: CT ABDOMEN AND PELVIS WITHOUT CONTRAST CLINICAL INFORMATION: Severe left flank pain status post left ureteroscopy. COMPARISON: CT scans dating between June 25, 2024 and September 08, 2013. TECHNIQUE: Multidetector volumetric imaging was performed from the superior aspect of the liver through the pubic symphysis. Sagittal and coronal reformatted images were obtained on the technologist's workstation. This CT examination was performed using dose optimization techniques as appropriate, variously including the following: *Automated exposure control *Adjustment of mA and/or kV according to patient size (this includes techniques or standardized protocols for targeted exams where dose is matched to indication/reason for exam; i.e. extremities or head) *Use of iterative reconstruction technique DLP: 288 mGy-cm FINDINGS: LUNG BASES: The lung bases appear clear, with no evidence of inflammation or nodules. LIVER, GALLBLADDER, AND BILIARY TREE: The liver appears unremarkable in size, shape, and attenuation. No focal hepatic lesion or biliary ductal dilatation is appreciated. Unremarkable appearance of the gallbladder. PANCREAS: Unremarkable SPLEEN: Unremarkable ADRENAL GLANDS: Unremarkable KIDNEYS AND URETERS/BLADDER: The proximal loop of a left double-J ureteral stent lies within the left renal pelvis, and the distal loop lies in the urinary bladder lumen. No evidence of kink. The previously seen 6 mm left proximal ureteral/UPJ stone now lies in the lower pole of the left renal collecting system. A previously seen 3 mm mid renal calculus remains. No hydronephrosis is evident on the left. The left renal parenchyma appears unremarkable. The right kidney appears unremarkable in size, shape, and attenuation. No right hydronephrosis, hydroureter, or calculi seen. Trace air in the nondependent portion of the urinary bladder, likely iatrogenic. GASTROINTESTINAL TRACT: The small and large bowel appear unremarkable. ABDOMINAL WALL: No significant hernia is appreciated. LYMPH NODES: No evidence of adenopathy by size criteria. VASCULAR: Unremarkable PERITONEAL CAVITY: Trace fluid in the cul-de-sac, nonspecific. PELVIC VISCERA: Unremarkable OSSEOUS STRUCTURES: Unremarkable CT/CT abdomen pelvis wo IV con IMPRESSION: No acute finding. Electronically signed by: Russel Silvestre MD 07/08/2024 07:28 AM EDT
[2024-07-08 04:46] VITALS: PULSE 73; RESP 16; TEMP 36.5; O2SAT 98; BMI 17.9
[2024-07-08 04:51] VITALS: BP 126/61; PULSE 83
--- NOTE | 2024-07-08 04:55 | ED.GENADULT ---
HPI - General Adult General Chief complaint: Nausea/Vomiting/Diarrhea Stated complaint: body shakes, fatigue after kidney stone surgery Time Seen by Provider: 07/08/24 04:48 Source: patient Mode of arrival: ambulatory Limitations: no limitations History of Present Illness ED Provider: Dr. Apolonia Hartman HPI narrative: Patient comes to the emergency room complaining of left-sided flank pain, shaking, anxiety, difficulty urinating. Patient states that yesterday she had a left ureteroscopy stent insertion for kidney stones. Patient states that she has been vomiting, generalized malaise, no doing well since she left the hospital. No tolerating p.o.. Related Data Home Medications ?Medication ?Instructions ?Recorded ?Confirmed clonazepam 0.5 mg tablet 0.5 mg PO BID PRN anxiety 04/16/23 07/07/24 escitalopram oxalate 20 mg tablet 20 mg PO DAILY 04/16/23 07/07/24 mirtazapine 7.5 mg tablet 7.5 mg PO BEDTIME 04/16/23 07/07/24 Previous Rx's ?Medication ?Instructions ?Recorded oxycodone-acetaminophen 5 mg-325 1 tab PO Q8H PRN pain 3 days #9 04/16/23 mg tablet (Percocet) tabs phenazopyridine 100 mg tablet 100 mg PO Q8H #30 tabs 04/16/23 (Pyridium) tramadol 50 mg tablet 50 mg PO Q8H PRN pain #8 tabs 04/30/23 hydroxyzine pamoate 25 mg capsule 25 mg PO BEDTIME #30 caps 05/13/23 ibuprofen 600 mg tablet 600 mg PO Q6H PRN fever or pain 06/25/24 #30 tabs tamsulosin 0.4 mg capsule (Flomax) 0.4 mg PO BEDTIME #14 caps 06/25/24 ondansetron 8 mg disintegrating 8 mg PO Q8H nausea #24 tabs 06/26/24 tablet oxycodone 5 mg tablet 5 mg PO Q6-8H PRN pain #8 tabs 06/26/24 solifenacin 10 mg tablet (Vesicare) 10 mg PO BEDTIME bladder spasms 07/07/24 #30 tabs Allergies Allergy/AdvReac Type Severity Reaction Status Date / Time SEASONAL ALLERGIES AdvReac Intermediate SNEEZING Uncoded 07/08/24 04:48 Review of Systems Review of Systems: Constitutional : No Weight loss, No Fever, No Chills, No Night Sweats, No Fatigue, No Malaise ENT/Mouth : No Hearing loss, No Ear Pain, No Nasal Congestion, No Sinus Pain, No Hoarseness, No sore throat, No Rhinorrhea, No Swallowing Difficulty Eyes: No Eye Pain, No Swelling, No Redness, No Foreign Body, No Discharge, No Vision Changes Cardiovascular : No Chest Pain, No SOB, No Dyspnea on Exertion, No Orthopnea, No Edema, No Palpitations Respiratory : No Cough, No Sputum, No Wheezing, No Smoke Exposure, No Dyspnea Gastrointestinal : Complaining of nausea and vomiting No Diarrhea, No Constipation, No abdominal Pain, No Hematochezia, No Melena Genitourinary : no irregular bleeding, No Dysuria, No Urinary Frequency, No Hematuria, No Urinary Incontinence, No Urgency, complaining of left-sided Flank Pain, No Urinary Flow Changes, No Hesitancy Musculoskeletal : No joint pain, No Myalgias, No Joint Swelling Skin : No Skin Lesions, No rash Neuro : No Weakness, No Numbness, No Paresthesias, No Loss of Consciousness, No Dizziness, No Headache Psych : No Anxiety/Panic, No Depression, No SI/HI/AH/VH, No Social Issues, Heme/Lymph: No Bruising, No Bleeding,No Lymphadenopathy Endocrine : No Polyuria, No Polydipsia, No Temperature Intolerance [facility] Past Medical History Medical History Kidney calculi Depression Anxiety Asthma Surgical History Status post placement of ureteral stent Family History Family History Father No problems noted. Mother No problems noted. Social History Social History Household Members Other:: lives with friend too Are you a primary intensive care unit nurse to a significant other at home: No Do you presently have visiting nurse or other home services: No Alcohol intake: current Alcohol intake frequency: a few times a month Patient Tobacco Use Status: Never used Tobacco Smoked in Last 30 Days: No Second Hand Smoke Exposure: No Use of substances other than those prescribed or required for medical reasons: Yes Substance Use Type: Marijuana Substance Use Frequency: Socially Advance Directives: No Advance Directives Information Provided: No Do you have a plan to hurt others: No Plan Patient : No Physical Exam ED Vital Signs: Vital Signs - 24 hr 07/08/24 04:46 07/08/24 04:51 Temperature 97.7 F Pulse Rate 73 83 Respiratory Rate 16 Blood Pressure 126/61 Pulse Oximetry 98 Oxygen Delivery Method Room Air BMI result Body Mass Index 17.9 Const Other: Appearance: Alert. Oriented X3. Looks very uncomfortable Eyes: Pupils equal, round and reactive to light. ENT: Pharynx normal. Neck: Normal inspection. Neck supple. No lymph nodes noted. No crepitus CVS: Normal heart rate and rhythm. Pulses normal. Normal S1 and S2 Respiratory: No respiratory distress. Breath sounds normal. No Wheezing. No rales Abdomen: Soft and nontender. No rigidity. No distention. Positive CVA tenderness Skin: Skin warm and dry. Normal skin color. Normal skin turgor. Extremities: No lower extremity edema. No Lacerations. No Rash Neuro: Oriented X 3. No motor deficit. No sensory deficit. Moving all extremities. No slurred speech. CN 2 through 12 grossly intact Psych: calm, cooperative, normal affect Course Course Course Narrative: Patient receiving IV fluids, Zofran, ketorolac All of patient's labs pending -CT scan pending -patient's vitals stable, blood pressure 126/61, pulse 83, no fever Medications Administered Discontinued Medications Generic Name Dose Route Start Last Admin Trade Name Freq PRN Reason Stop Dose Admin Sodium Chloride 1,000 mls @ 999 mls/hr 07/08/24 04:53 07/08/24 06:10 Ns IVCONT 07/08/24 05:53 Infused .Q1H1M ONE Infusion Ketorolac Tromethamine 30 mg 07/08/24 04:53 07/08/24 05:07 Ketorolac Tromethamine 30 Mg/Ml Vial IVPUSH 07/08/24 04:54 30 mg ONCE ONE Administration Lorazepam 1 mg 07/08/24 04:53 07/08/24 05:06 Lorazepam 2 Mg/Ml Vial IVPUSH 07/08/24 04:54 1 mg ONCE ONE Administration Morphine Sulfate 4 mg 07/08/24 06:16 07/08/24 06:27 Morphine Sulfate 4 Mg/Ml Cartridge IVPUSH 07/08/24 06:17 4 mg ONCE ONE Administration Protocol Ondansetron HCl 4 mg 07/08/24 04:53 07/08/24 05:06 Ondansetron Hcl 4 Mg/2 Ml Vial IVPUSH 07/08/24 04:54 4 mg ONCE ONE Administration Prochlorperazine Edisylate 10 mg 07/08/24 06:16 07/08/24 06:27 Prochlorperazine Edisylate 10 Mg/2 Ml Vial IVPUSH 07/08/24 06:17 10 mg ONCE ONE Administration Medical Decision Making Medical Decision Making [facility] Narrative: My interpretation of labs, patient's white blood cell count 12.6 chemistry within normal limits, normal creatinine, hCG negative -despite Toradol and Zofran, patient is still complaining of abdominal/flank pain and vomiting -patient receiving a 2nd dose of medications including Compazine and morphine, CT scan pending -sign-out given to my colleague Dr. Torres Differential Diagnosis Differential Diagnoses: The differential diagnosis associated with the presentation includes (UTI, pyelonephritis, postsurgical pain) Lab Data [facility] Lab Attestation statement: I reviewed the patient's lab results. 07/08/24 05:00 07/08/24 05:00 Labs: Lab Results 07/08/24 Range/Units 05:00 WBC 12.6 H (4.8-10.8) X10*3/uL RBC 4.01 L (4.20-5.50) X10*6/uL Hgb 12.5 (12.0-16.0) g/dl Hct 37.4 (37.0-47.0) % MCV 93.3 (80.0-98.0) fL MCH 31.2 (27.0-33.0) pg MCHC 33.4 (31.0-35.0) g/dl RDW 11.9 (11.0-16.0) % Plt Count 227 (160-400) X10*3/uL MPV 10.2 (9.4-12.3) fL Immature Gran % (Auto) 0.4 (0.0-0.4) % Neut % (Auto) 86.7 H (45-73) % Lymph % (Auto) 8.3 L (20-40) % [place] % (Auto) 4.3 (2-11) % Eos % (Auto) 0.1 (0-4) % Baso % (Auto) 0.2 (0-2) % Lymph # (Auto) 1.0 L (1.2-4.9) X10*3/uL [place] # (Auto) 0.5 (0.1-1.2) X10*3/uL Eos # (Auto) 0.0 (0.0-0.4) X10*3/uL Baso # (Auto) 0.0 (0.0-0.2) X10*3/uL Abs Immat Gran (auto) 0.05 H (0.00-0.03) X10*3/uL Absolute Neuts (auto) 10.9 H (2.0-8.3) x10*3/uL Absolute Nucleated RBC 0.000 (0.0-0.012) X10*3/uL Nucleated RBC % (auto) 0.0 (0.0-0.2) /100WBC Sodium 140 (135-145) mmol/L Potassium 4.4 (3.3-5.1) mmol/L Chloride 107 (96-108) mmol/L Carbon Dioxide 20 L (22-29) mmol/L Anion Gap 17 (12-20) BUN 16 (9-16) mg/dL Creatinine 0.80 (0.5-1.4) mg/dL Estim Creat Clear Calc 71.8 Estimated GFR > 60 Random Glucose 124 H (60-115) mg/dL Calcium 9.5 D (8.4-10.2) mg/dL Total Bilirubin 0.5 (0.0-1.0) mg/dL Direct Bilirubin 0.2 (0.0-0.5) mg/dL AST 17 (5-31) U/L ALT 13 (0-31) U/L Alkaline Phosphatase 41 (39-117) U/L Total Protein 7.1 (6.5-8.0) g/dL Albumin 4.6 (3.5-5.0) g/dL Lipase 41 (8-78) U/L Independent Interpretation I performed an independent interpretation of an: CT Scan Critical Care Time Critical Care Time Critical Care Time: Yes Total Critical Care Time: 45 Attestation: I have personally provided critical care time. Time includes review of lab data, radiology results, discussion with consultants, and monitoring for potential decompensation. Intervention performed as documented. Discharge Plan Discharge Clinical Impression: Flank pain, Nausea & vomiting Patient Disposition: Still a Patient Prescriptions: No Action hydroxyzine pamoate 25 mg capsule 25 mg PO BEDTIME Qty: 30 3RF tramadol 50 mg tablet 50 mg PO Q8H PRN (Reason: pain) Qty: 8 0RF clonazepam 0.5 mg tablet 0.5 mg PO BID PRN (Reason: anxiety) escitalopram oxalate 20 mg tablet 20 mg PO DAILY mirtazapine 7.5 mg tablet 7.5 mg PO BEDTIME phenazopyridine [Pyridium] 100 mg tablet 100 mg PO Q8H Qty: 30 0RF Rx Instructions: take with food oxycodone-acetaminophen [Percocet] 5-325 mg tablet 1 tab PO Q8H PRN (Reason: pain) 3 Days Qty: 9 0RF Rx Instructions: Partial Fill upon patient request. tamsulosin [Flomax] 0.4 mg capsule 0.4 mg PO BEDTIME Qty: 14 0RF ibuprofen 600 mg tablet 600 mg PO Q6H PRN (Reason: fever or pain) Qty: 30 0RF solifenacin [Vesicare] 10 mg tablet 10 mg PO BEDTIME Qty: 30 1RF ondansetron 8 mg tablet,disintegrating 8 mg PO Q8H Qty: 24 0RF oxycodone 5 mg tablet 5 mg PO Q6-8H PRN (Reason: pain) Qty: 8 0RF Rx Instructions: Partial Fill upon patient request. Print Language: [place]
[2024-07-08] MEDS: 0.9 % Sodium Chloride 1,000 ML 999 ML IVCONT (05:03)
[2024-07-08 05:05] LABS: Basophils Percent Auto 0.2 % (0-2); Eosinophils Percent Auto 0.1 % (0-4); Hematocrit 37.4 % (37.0-47.0); Hemoglobin 12.5 g/dl (12.0-16.0); Imm Gran Abs Auto 0.05 X10*3/uL (0.00-0.03); Imm Gran Pct Auto 0.4 % (0.0-0.4); Lymphocytes Percent Auto 8.3 % (20-40); MANUAL DIFF FLAG NO; Mean Corpuscular HGB Conc 33.4 g/dl (31.0-35.0); Mean Corpuscular Hemoglobin 31.2 pg (27.0-33.0); Mean Corpuscular Volume 93.3 fL (80.0-98.0); Mean Platelet Volume 10.2 fL (9.4-12.3); Monocytes Absolute Auto 0.5 X10*3/uL (0.1-1.2); Monocytes Percent Auto 4.3 % (2-11); Neutrophils Absolute Auto 10.9 x10*3/uL (2.0-8.3); Neutrophils Percent Auto 86.7 % (45-73); Platelet Count 227 X10*3/uL (160-400); Red Blood Count 4.01 X10*6/uL (4.20-5.50); Red Cell Distribution Width 11.9 % (11.0-16.0); White Blood Count 12.6 X10*3/uL (4.8-10.8)
[2024-07-08] MEDS: ondansetron HCL 4 MG/2 ML VIAL IVPUSH (05:06)
[2024-07-08] MEDS: LORazepam 2 MG/ML VIAL 1 MG IVPUSH (05:06)
[2024-07-08] MEDS: Ketorolac Tromethamine 30 MG/ML VIAL IVPUSH (05:07)
[2024-07-08 05:20] LABS: Alanine Aminotransferase 13 U/L (0-31); Albumin Level 4.6 g/dL (3.5-5.0); Alkaline Phosphatase 41 U/L (39-117); Anion Gap 17 (12-20); Aspartate Amino Transferase 17 U/L (5-31); Bilirubin Direct 0.2 mg/dL (0.0-0.5); Bilirubin Total 0.5 mg/dL (0.0-1.0); Blood Urea Nitrogen 16 mg/dL (9-16); Calcium 9.5 mg/dL (8.4-10.2); Carbon Dioxide 20 mmol/L (22-29); Chloride 107 mmol/L (96-108); Creatinine Clr Calc Pharmacy 71.8; Estimated Glomerular Filt Rate > 60; Glucose Random 124 mg/dL (60-115); Lipase 41 U/L (8-78); Potassium 4.4 mmol/L (3.3-5.1); Sodium 140 mmol/L (135-145); Total Protein 7.1 g/dL (6.5-8.0)
[2024-07-08] MEDS: Morphine Sulfate 4 MG/ML CARTRIDGE IVPUSH (06:27)
[2024-07-08] MEDS: Prochlorperazine Edisylate 10 MG/2 ML VIAL IVPUSH (06:27)
[2024-07-08 08:52] VITALS: BP 100/44; PULSE 90; RESP 16; TEMP 37.1; O2SAT 96
[2024-07-08 08:53] VITALS: BP 100/44; PULSE 90; RESP 16; TEMP 37.1; O2SAT 96
== END 2024-07-08 08:53 | disposition home or self-care (01) ==
PROVIDERS: Emergency Medicine; Emergency Provider Student in an Organized Health Care Education/Training Program; PCP Nurse Practitioner Family
DX: R10.9 Unspecified abdominal pain (principal); R11.2 Nausea with vomiting, unspecified; Z87.442 Personal history of urinary calculi
CPT/HCPCS: 36415; 74176; 80048; 80076; 83690; 85025; 96361; 96374; 96375; 99284; J0737; J1885; J2060; J2270; J2405

== ENCOUNTER 2024-07-21 08:33 | Day surgery (SDC) | payer OTHER, SELFPAY ==
[2024-07-15 15:12] VITALS: BMI 18.9
--- NOTE | 2024-07-17 09:34 | HO.ANESPROP2 ---
Documented by User: Cherise Bolivar NP 07/17/24 09:35 HPI - Anesthesia Eval Consult details Narrative: 28yo F for Left Cystoscopy, Ureteroroscopy, Retro, Laser with stent exchange s/p same 07/07/24 with GA-LMA 4 PMFSH Active Problems Active Problems: All Active Problems Hydronephrosis, left (Acute) Kidney stone on left side (Acute) Medication side effects (Acute) Fatigue (Acute) Hydronephrosis, right (Acute) Right ureteral stone (Acute) Bilateral nephrolithiasis (Acute) Ureterolithiasis (Acute) Past Medical History Medical History (Updated 07/09/24 @ 00:00 by Juliano Andrews) Kidney calculi Depression Anxiety Asthma Family History Family History Father No problems noted. Mother No problems noted. Family history of problems with anesthesia: No Surgical History Surgical History (Updated 07/21/24 @ 08:59 by Monica Redding RN) H/O endoscopy H/O colonoscopy H/O lithotripsy Status post placement of ureteral stent History of Problems with Anesthesia: No Social History Social History Household Members Other:: lives with friend too Are you a primary care consultant to a significant other at home: No Do you presently have visiting nurse or other home services: No Alcohol intake: current Alcohol intake frequency: holidays/special occasions only Patient Tobacco Use Status: Never used Tobacco Second Hand Smoke Exposure: No Use of substances other than those prescribed or required for medical reasons: Yes Substance Use Type: Marijuana Substance Use Frequency: Daily Have you been hit, kicked, punched, or otherwise hurt by someone within the past year? If so, by whom?: No Are you DNR?: No Advance Directives: No Advance Directives Information Provided: Yes Recently lost weight without trying: No How much weight loss: Not applicable Eating poorly because of decreased appetite: No Nutrition screen score: 0 Nutrition Risks: No Nutritional Risk Patient : No : No Poor oral hygiene: Yes (bottom front small chip) Meds Allergies Allergy/AdvReac Type Severity Reaction Status Date / Time Seasonal Allergies Allergy Intermediate Sneezing Verified 07/21/24 08:59 Home Medications ?Medication ?Instructions ?Recorded ?Confirmed ?Last Taken ?Type clonazepam 0.5 mg tablet 0.5 mg PO BID PRN anxiety 04/16/23 07/21/24 07/07/24 History escitalopram oxalate 20 mg tablet 20 mg PO DAILY 04/16/23 07/21/24 04/15/23 History mirtazapine 7.5 mg tablet 7.5 mg PO BEDTIME 04/16/23 07/21/24 04/14/23 History aluminum chloride 20 % topical 1 appl topical DAILY 07/21/24 07/21/24 Unknown History solution (Drysol Dab-O-Matic) Exam Height,Weight and Vital Signs: Height 5 ft 1 in Weight 45.359 kg Assessment and Plan Assessment Anesthesia Assessment: Chart Reviewed Final Anesthetic Review Family History of Problems with Anesthesia: No History of Problems with Anesthesia: No Documented by User: Darian Sloan MD 07/21/24 09:54 [facility] Past Medical History Medical History (Updated 07/09/24 @ 00:00 by Juliano Andrews) Kidney calculi Depression Anxiety Asthma Family History Family History Father No problems noted. Mother No problems noted. Surgical History Surgical History (Updated 07/21/24 @ 08:59 by Monica Redding RN) H/O endoscopy H/O colonoscopy H/O lithotripsy Status post placement of ureteral stent Social History Social History Household Members Other:: lives with friend too Are you a primary care consultant to a significant other at home: No Do you presently have visiting nurse or other home services: No Alcohol intake: current Alcohol intake frequency: holidays/special occasions only Patient Tobacco Use Status: Never used Tobacco Second Hand Smoke Exposure: No Use of substances other than those prescribed or required for medical reasons: Yes Substance Use Type: Marijuana Substance Use Frequency: Daily Have you been hit, kicked, punched, or otherwise hurt by someone within the past year? If so, by whom?: No Are you DNR?: No Advance Directives: No Advance Directives Information Provided: Yes Recently lost weight without trying: No How much weight loss: Not applicable Eating poorly because of decreased appetite: No Nutrition screen score: 0 Nutrition Risks: No Nutritional Risk Patient : No : No Poor oral hygiene: Yes (bottom front small chip) Meds Allergies Allergy/AdvReac Type Severity Reaction Status Date / Time Seasonal Allergies Allergy Intermediate Sneezing Verified 07/21/24 08:59 Home Medications ?Medication ?Instructions ?Recorded ?Confirmed ?Last Taken ?Type clonazepam 0.5 mg tablet 0.5 mg PO BID PRN anxiety 04/16/23 07/21/24 07/07/24 History escitalopram oxalate 20 mg tablet 20 mg PO DAILY 04/16/23 07/21/24 04/15/23 History mirtazapine 7.5 mg tablet 7.5 mg PO BEDTIME 04/16/23 07/21/24 04/14/23 History aluminum chloride 20 % topical 1 appl topical DAILY 07/21/24 07/21/24 Unknown History solution (Drysol Dab-O-Matic) Exam Airway Mallampati Class: II TM Dist: >3cm Neck ROM: Full Loose/Missing/Broken Teeth: No Heart: ok Lungs: ok Assessment and Plan Assessment Anesthesia Assessment: Anesthesia Plan Discussed Final Anesthetic Review NPO: Yes ASA Class: II Final Preanesthetic Review: No Changes in Pt Med Stat, Meds/Allgs Chart Reviewed, Consent Obtained/Reviewed and Anes Risks/Benef Reviewed Patient Risk: Low Procedure Risk: Low Anesthetic Plan Anesthetic Plan: GA and Agree w/ Assess. and Plan Disposition: Standard PACU
[2024-07-21] VITALS (7 sets, daily range): BP systolic 103–116; BP diastolic 51–74; PULSE 61–100; RESP 16–20; TEMP 37–37.3; O2SAT 98–100; BMI 19.3
[2024-07-21 09:06] LABS: UPreg QC Valid YES; Urine Pregnancy NEGATIVE (NEGATIVE)
[2024-07-21] MEDS: Albuterol Sulfate (0.083%) 2.5 MG/3 ML VIAL.NEB INHALE (09:12)
[2024-07-21] MEDS: Lactated Ringers 1,000 ML 100 ML IVCONT (09:24)
--- NOTE | 2024-07-21 09:34 | MHC.SHP ---
Pre-Procedural Eval Section A - 24 Hr Update-Section A only Date of Service: 07/21/24 The patient is an INPATIENT: No The patient has been examined within 24 hours of the surgical procedure. The History & Physical has been completed within 30 days and I have reviewed it.: Yes Section B - Complete if H&P > 30 days Chief Complaint: Calculus of kidney Allergies: Allergies Allergy/AdvReac Type Severity Reaction Status Date / Time Seasonal Allergies Allergy Intermediate Sneezing Verified 07/21/24 08:59 Plan Diagnosis/Plan: Unchanged I have reviewed the history and physical and performed a pertinent physical examination on my patient. No changes have occurred unless specified. Plan for Cystoscopy, left ureteroscopy, lithotripsy, ureteral stent exchange. Risks discussed included but not limited to, possible need to repeat procedure if stone is not completely fragmented, Irritative voiding symptoms, bladder spasms, urgency, blood in urine. Time Spent With Patient Time: Total time managing care of this patient today ____ minutes.
[2024-07-21] MEDS: clonazePAM 0.5 MG TABLET PO (11:50)
[2024-07-21] MEDS: ondansetron HCL 4 MG/2 ML VIAL IVPUSH (11:51)
--- NOTE | 2024-07-21 11:52 | P.OP_ITS ---
Operative Note Operative Note Date of Service: 07/21/24 Narrative: PreOperative Diagnosis:?? Left renal stones Post Operative Diagnosis:?? Left renal stones Procedure: - Cystoscopy, left ureteroscopy laser lithotripsy stent exchange, 6 Hungarian by 24 cm Surgeon:?Dr Flip Mckoy Anesthesia:? General Procedure: After informed consent was verified the patient was brought to the operating placed on the OR table in supine position.? General Anesthesia was administered per protocol.? The patient was placed in lithotomy position, prepped and draped in the usual sterile fashion.? Safety pause time-out and side of surgery confirmed.? Antibiotics confirmed. Ancef 2 g IV. 2% lidocaine jelly 10 mL was passed transurethrally. A 22 Hungarian cystoscope was inserted transurethrally, The bladder was visualized.? A grasping forceps was used to grasp the distal end of the ureteral stent. A guidewire was passed through the ureteral stent into the kidney. A 2nd guidewire was then passed into the kidney to use as a safety. The cystoscope was removed, leaving both guidewires in place. One guidewire was used as the safety and was attached to the draping. The disposable flexible ureteroscope was passed over one of the guidewires into the kidney the stone was visualized in the lower pole of the kidney. One guidewire was then removed. Laser lithotripsy of the stone was done using the 272 fiber with a alternating pulsating and dusting setting. There was good fragmentation of the stone. The flexible ureteroscope was removed. The cystoscope was passed over the safety guidewire. A? 6 Hungarian by 24 cm stent was placed into the ureter and renal pelvis under a combination of fluoroscopy and direct visualization. The bladder was emptied.? The rigid cystoscope was removed. ? The patient tolerated the procedure well and was brought to the recovery room in stable condition. Complications: None Drains: Ureteral stent as dictated above
== END 2024-07-21 12:47 | disposition home or self-care (01) ==
PROVIDERS: Nurse Practitioner; PCP Nurse Practitioner Family; Visit Provider Urology
PROC: (CPT 52356; principal; 2024-07-21 10:20)
DX: N20.0 Calculus of kidney (principal); N13.30 Unspecified hydronephrosis; J45.909 Unspecified asthma, uncomplicated; F32.A Depression, unspecified; F41.9 Anxiety disorder, unspecified; Z87.442 Personal history of urinary calculi; Z79.899 Other long term (current) drug therapy; Z79.1 Long term (current) use of non-steroidal anti-inflammatories (NSAID)
CPT/HCPCS: 52356; 81025; 87086; C1758; C1769; C2617; J0131; J0690; J1940; J2003; J2250; J2405; J2704; J3010; Q9967

== ENCOUNTER → 2024-07-21 08:33 | Outpatient (BNV) | payer OTHER, SELFPAY | PROVIDERS: PCP Nurse Practitioner Family; Visit Provider Urology | DX: N20.0 Calculus of kidney (principal) | CPT/HCPCS: 52356 ==

== ENCOUNTER 2024-07-29 14:08 | Outpatient (AMB) | payer OTHER, SELFPAY ==
--- NOTE | 2024-07-29 14:15 | A.OFFVIS_ITS ---
Intake Visit Reasons: Stent removal Intake Note: Patient is present for STENT REMOVAL Urology Medication:OXYCODONE Antibiotic Allergy:NONE Blood Thinner:NONE Account Technician Required: No Allergies Seasonal Allergies Allergy (Intermediate, Verified 07/29/24 14:20) Sneezing Medication List - Last Reconciled 07/29/24 by Flip Mckoy MD aluminum chloride 20% (Drysol Dab-O-Matic) 1 appl topical DAILY clonazepam 0.5 mg PO BID PRN escitalopram oxalate 20 mg PO DAILY ibuprofen 600 mg PO Q6H PRN metoclopramide HCl (Reglan) 10 mg PO Q6H PRN mirtazapine 7.5 mg PO BEDTIME ondansetron 4 mg PO Q6H oxycodone 5 mg PO .[id number] PRN HPI Comments Details: 07/29/24--here for left ureteral stent removal status post ureteroscopy laser lithotripsy 2 weeks ago. Cystoscopy left ureteral stent removed without difficulty. Hydronephrosis. Renal ultrasound in 3 months. Recurrent kidney stones. 24 hour urine. Review of chart: 06/26/24--Remedios was in the emergency room yesterday with left flank pain. She was sent home with Flomax and ibuprofen. Currently she is asymptomatic. I have reviewed CT scan-06/25/24 results with her, a 6 mm proximal ureteral stone with hydronephrosis and a 3 mm left renal stone, right kidney no stones visualized. The patient was treated last year for a right ureteral stone, at that time discussed further evaluation with 24 hour urine, she did not come for follow-up. Treatment plan discussed left ureteroscopy laser lithotripsy with stent placement. I want her to continue with the tamsulosin I have sent a script for oxycodone and Zofran. 05/27/2023?Remedios is a 27-year-old female who presents today to the office for a follow up. She was last seen by me on 04/26/2023 for bilateral nephrolithiasis.?She is s/p right ureteroscopy laser lithotripsy on 04/30/23. She is here for stent removal. 04/26/2023?Remedios is a 27-year-old who was initially evaluated as an inpatient for right-sided flank pain secondary to an obstructing right renal stone. She is status post right ureteral stent on 04/16/23. Results reviewed ? Discussed with the patient the CAT scan on 04/15/23 was done with contrast and noted a 4 mm obstructing stone in the proximal right ureter. Also there is a nonobstructing 4 mm stone in the left upper pole kidney. She is complaining of fatigue, She is prescribed? Vistaril and Pyridium due to LUTS secondary to ureteral stent. I will fill out a work note to reduce work day responsibilities to 5 hr work day. Evaluation today-- UA 04/26/23-- Blood: 3+ Tiburcio/uL. Leukocytes: 15 Gabrielle/uL. Plan: CAT scan results were reviewed with the patient in detail today. Right ureteroscopy, laser lithotripsy and stent exchange discussed to be scheduled. Risks discussed included but not limited to, possible need to repeat procedure if stone is not completely fragmented, Irritative voiding symptoms, bladder spasms, urgency, blood in urine. Will write a work note for accommodations due to the stent being placed and the required medication that I have prescribed Vistaril and Pyridium which both cause some drowsiness. PFSH Medical History Kidney calculi Depression Anxiety Asthma Surgical History H/O endoscopy H/O colonoscopy H/O lithotripsy Status post placement of ureteral stent Family History Father No problems noted. Mother No problems noted. Social History Household Members Other:: lives with friend too Are you a primary child care center assistant director to a significant other at home: No Do you presently have visiting nurse or other home services: No Alcohol intake: current Alcohol intake frequency: holidays/special occasions only Patient Tobacco Use Status: Never used Tobacco Second Hand Smoke Exposure: No Substance Use Type: Marijuana Review of Systems Const All systems reviewed & are unremarkable except as noted in HPI and below Reports no additional complaints Eyes Reports no additional complaints ENT Reports no additional complaints Card Reports no additional complaints Resp Reports no additional complaints GI Reports no additional complaints Reports as per HPI Musc Reports no additional complaints Skin/Breast Reports system reviewed and no additional complaints, except as documented Neuro Reports no additional complaints Psych Reports no additional complaints Endo Reports no additional complaints Genaro/Lymph Reports no additional complaints Aller/Immun Reports no additional complaints Office Procedures Cystoscopy Consent Discussed risk and benefit or proposed procedure with the patient. Information consent for procedure given to the patient. Discussed technical aspects, risks, benefits and alternatives in full. Addressed all of the patient's questions and concerns regarding the procedure. The patient demonstrated knowledge and understanding. They wish to proceed with this procedure. Preparation The patient was prepped in the usual manner. A senior principal software engineer was present and in the room. Genitalia was prepped with betadine solution in a sterile manner. Lidocaine Jelly 2% was placed into the urethra and 16Fr flexible Olympus cystoscope was inserted into the meatus after adequate lubrication. [id number] with stent removal DISPOSABLE SCOPE URO-G FLEXIBLE SCOPE Procedure code (CPT) selection complete Office Meds lidocaine HCl 2 % mucosal jelly in applicator Performing Provider: Flip Mckoy MD Performing [facility] Administered by: Jesus Manuel Hurt LPN on 07/29/24 14:59 Dose Route Admin Location Dispensed Lot Number Expiration Date ND Strap Making Machine Operator 10 mL intra-urethral 10 mL naproxen 500 mg tablet Performing Provider: Flip Mckoy MD Performing Location: [facility] [place] [facility] Administered by: Jesus Manuel Hurt LPN on 07/29/24 14:59 Dose Route Admin Location Dispensed Lot Number Expiration Date NDC Strap Making Machine Operator 500 mg PO 1 tab ciprofloxacin HCl 500 mg tablet Performing Provider: Flip Mckoy MD Performing Location: [facility] [place] [facility] Administered by: Jesus Manuel Hurt LPN on 07/29/24 14:59 Dose Route Admin Location Dispensed Lot Number Expiration Date NDC Strap Making Machine Operator 500 mg PO 1 tab Assessment & Plan Assessment & Plan (1) Kidney stone on left side: Code(s): N20.0 - Calculus of kidney Category: Medical (2) Ureterolithiasis: Code(s): N20.1 - Calculus of ureter Category: Medical (3) Hydronephrosis, left: Code(s): N13.30 - Unspecified hydronephrosis Category: Medical Plan Status post ureteroscopy laser lithotripsy 2 weeks ago. Cystoscopy left ureteral stent removed without difficulty. Hydronephrosis. Renal ultrasound in 3 months. Recurrent kidney stones. 24 hour urine. Orders: Orders AMB Urinalysis Automated Today Z13.9 - Encounter for screening, unspecified AMB Cystoscopy Today N13.30 - Unspecified hydronephrosis, N20.0 - Calculus of kidney, N20.1 - Calculus of ureter Patient Instructions: The patient had an opportunity to ask questions regarding treatment plan. The patient expressed understanding and agreement with the above treatment plan. The patient is aware they should contact our office by phone for worsening of their current condition or the appearance of new symptoms. Compliance is encouraged with any medications and followup testing that is ordered. It is a privilege to be allowed the opportunity to participate in the urologic care of your patient. If you have any questions or concerns regarding treatment for the above conditions please do not hesitate to contact me. The office telephone contact is [phone]. This note is constructed in part using voice recognition software. While every effort has been made to ensure accuracy woodworker errors may have been i ncluded. Yours sincerely, Flip Mckoy MD Coding Level of Care Code Est Pt Level 3 (75107) Diagnoses Kidney stone on left side N20.0 Ureterolithiasis N20.1 Hydronephrosis, left N13.30 CPT Codes Cystoscopy - CPT: 06605-Myemghupib with stent removal ([id number])
== END 2024-07-29 15:43 | disposition home or self-care (01) ==
PROVIDERS: PCP Nurse Practitioner Family; Visit Provider Urology
DX: N13.30 Unspecified hydronephrosis (principal); N20.0 Calculus of kidney; N20.1 Calculus of ureter; Z96.0 Presence of urogenital implants
CPT/HCPCS: 52310

== ENCOUNTER → 2024-07-29 14:08 | Outpatient (BNVA) | payer OTHER, SELFPAY | PROVIDERS: PCP Nurse Practitioner Family; Visit Provider Urology | DX: Z48.816 Encounter for surgical aftercare following surgery on the genitourinary system (principal); N13.30 Unspecified hydronephrosis | CPT/HCPCS: 52310 ==

== ENCOUNTER → 2024-07-30 08:48 | Outpatient (BNV) | payer OTHER, SELFPAY | PROVIDERS: PCP Nurse Practitioner Family; Visit Provider Urology | DX: Z13.9 Encounter for screening, unspecified (principal) | CPT/HCPCS: 81003 ==